=== PATIENT | female | born 1985 | race Hispanic/Latino ===

== ENCOUNTER 2016-10-31 10:39 | Emergency (ER) | payer MEDICAID ==
[~2016-10-31] VITALS: Ht 162.6 cm; Wt 62.6 kg
[~2016-10-31 10:39] MED LIST: ALPR0.25 PO; ALPR0.5T7; BUSP10TA95; CETI10TA17 PO; CIPR500T4 PO; CLON0.1T PO; CYCL10TA9 PO; DICY20TA10 PO; DICY20TA33 PO; DOCU-238 PO; DOCU100C37 PO; HYDR-3812 PO; HYDR-757 PO; METR500T21 PO; NAPR500T3 PO; NF-DICLOTA PO; NORG1TAB30 PO; ONDA8TAB13 PO; ONDA8TAB9 PO; POLY17PO6 PO; PRD20T PO; QUET100T69 PO; TRAM-42 PO
[2016-10-31] MEDS ORDERED: ONDANSETRON 4 MG (ZOFRAN) ORAL DISSOLVE TAB PO ONE (11:30)
[2016-10-31] MEDS ORDERED: ONDA8TAB9 PO (11:33)
--- NOTE | 2016-10-31 11:33 | ED Cough/URI ---
General Chief Complaint: Cough/Cold/Flu Symptoms Stated Complaint: FLU Source: patient Exam Limitations: no limitations History of Present Illness Time seen by provider: 11:30 Initial Comments To ER with 2-3 days of flulike symptoms including chills, nausea and vomiting, rhinorrhea. She also states that this is been going around her workplace and she believes that she may have caught this from one of her coworkers. She has not measured her temperature but believes herself to had fevers. She does not have a cough. She also found out last night that her boyfriend has been sleeping with 3 other women and she would like "blood test for any STDs". Timing/Duration: constant Severity/Quality: moderate Associated Symptoms: fever/chills Allergies and Home Medications Allergies Coded Allergies: Penicillins (Unverified Allergy, Unknown, 04/19/16) sulfamethoxazole (Unverified Allergy, Unknown, 04/19/16) trimethoprim (Unverified Allergy, Unknown, 04/19/16) tramadol (Unverified Adverse Reaction, Mild, rash, 04/19/16) Home Medications Alprazolam 0.5 Mg Tablet, #60 (Reported) Alprazolam 0.25 Mg Tablet, 0.25 MG PO Q8H, #6 Prescribed by: HILARIA CLOUD on 04/18/16 0250 Buspirone HCl 10 Mg Tablet, #60 (Reported) Cefuroxime Axetil 500 Mg Tablet, 500 MG PO BID, #10 Prescribed by: HILDA ROSADO on 10/31/16 1203 Cetirizine HCl 10 Mg Tablet, 10 MG PO DAILY, (Reported) Cyclobenzaprine HCl 10 Mg Tablet, 10 MG PO Q8H PRN for SPASMS, #10 Ref 0 Prescribed by: DANIEL MARTINEZ on 04/19/16 1313 Diclofenac Sod 100 Mg Tab, 100 MG PO DAILY PRN for PAIN, #14 Ref 0 Prescribed by: DANIEL MARTINEZ on 04/19/16 1313 Naproxen 500 Mg Tablet, 500 MG PO BID, #20 Prescribed by: GATO POTTS on 03/11/16 0356 Ondansetron 8 Mg Tab.rapdis, 8 MG PO Q6H PRN for NAUSEA/VOMITING, #10 Ref 0 Prescribed by: DANIEL MARTINEZ on 04/19/16 1333 Ondansetron 8 Mg Tab.rapdis, 8 MG PO Q6H PRN for NAUSEA/VOMITING-1ST LINE, #10 Prescribed by: HILDA ROSADO on 10/31/16 1133 Prednisone 20 Mg Tab, 40 MG PO DAILY, #10 Ref 0 Prescribed by: DANIEL MARTINEZ on 04/19/16 1313 Quetiapine Fumarate 100 Mg Tablet, 100 MG PO HS PRN for SLEEP, (Reported) Tramadol HCl 50 Mg Tablet, 50 MG PO Q8H, #6 Prescribed by: HILARIA CLOUD on 04/18/16 0250 Constitutional: see HPI, chills Respiratory: no symptoms reported Cardiovascular: no symptoms reported Genitourinary: no symptoms reported Musculoskeletal: no symptoms reported Skin: no symptoms reported Psychiatric/Neurological: No Symptoms Reported Hematologic/Lymphatic: No Symptoms Reported Past Brgpago-Vemfyu-Fsqrwq Hx Patient Social History Alcohol Use: Denies Use Recreational Drug Use: No Smoking Status: Current Everyday Smoker Type Used: Cigarettes Recent Foreign Travel: No Contact w/Someone Who Travel: No Recent Hopitalizations: No Immunizations Up To Date Tetanus Booster (TDap): Less than 5yrs PED Vaccines UTD: No Seasonal Allergies Seasonal Allergies: Yes Surgeries HX Surgeries: Yes Surgeries: Gallbladder, Orthopedic Respiratory Hx Respiratory Disorders: No Cardiovascular Hx Cardiac Disorders: No Neurological Hx Neurological Disorders: No Reproductive System Hx Reproductive Disorders: No Female Reproductive Disorders: Denies Genitourinary Hx Genitourinary Disorders: No Gastrointestinal Hx Gastrointestinal Disorders: No Musculoskeletal Hx Musculoskeletal Disorders: No Endocrine Hx Endocrine Disorders: No HEENT HX ENT Disorders: No Cancer Hx Cancer: No Psychosocial Hx Psychiatric Problems: Yes Behavioral Health Disorders: Bipolar Integumentary HX Skin/Integumentary Disorder: No Blood Transfusions Hx Blood Disorders: No Family Medical History Significant Family History: No Pertinent Family Hx Family Medial History: Physical Exam Vital Signs Vital Sign - Last 12Hours 10/31/16 11:23 Temp 98.4 Pulse 86 Resp 20 B/P (MAP) 112/96 Pulse Ox 98 O2 Delivery Room Air Capillary Refill : General Appearance: WD/WN, no apparent distress Eyes: Bilateral Eye EOMI, Bilateral Eye Normal Inspection, Bilateral Eye PERRL HEENT: PERRL/EOMI, normal ENT inspection Neck: non-tender, full range of motion Respiratory: no respiratory distress, no accessory muscle use Cardiovascular: regular rate, rhythm, no murmur Gastrointestinal: normal bowel sounds, non tender, soft Neurologic/Psychiatric: alert, normal mood/affect, oriented x 3 Skin: normal color, warm/dry Progress/Results/Core Measures Results/Orders Lab Results Laboratory Tests Test 10/31/16 11:40 Range/Units White Blood Count 4.7 4.3-11.0 10^3/uL Red Blood Count 4.66 4.35-5.85 10^6/uL Hemoglobin 14.1 11.5-16.0 G/DL Hematocrit 43 35-52 % Mean Corpuscular Volume 92 80-99 FL Mean Corpuscular Hemoglobin 30 25-34 PG Mean Corpuscular Hemoglobin Concent 33 32-36 G/DL Red Cell Distribution Width 13.6 10.0-14.5 % Platelet Count 300 130-400 10^3/uL Mean Platelet Volume 8.9 7.4-10.4 FL Neutrophils (%) (Auto) 60 42-75 % Lymphocytes (%) (Auto) 33 12-44 % Monocytes (%) (Auto) 6 0-12 % Eosinophils (%) (Auto) 0 0-10 % Basophils (%) (Auto) 0 0-10 % Neutrophils # (Auto) 2.8 1.8-7.8 X 10^3 Lymphocytes # (Auto) 1.6 1.0-4.0 X 10^3 Monocytes # (Auto) 0.3 0.0-1.0 X 10^3 Eosinophils # (Auto) 0.0 0.0-0.3 10^3/uL Basophils # (Auto) 0.0 0.0-0.1 10^3/uL Urine Color YELLOW Urine Clarity CLEAR Urine pH 7 5-9 Urine Specific [place] 1.005 L 1.016-1.022 Urine Protein NEGATIVE NEGATIVE Urine Glucose (UA) NEGATIVE NEGATIVE Urine Ketones NEGATIVE NEGATIVE Urine Nitrite NEGATIVE NEGATIVE Urine Bilirubin NEGATIVE NEGATIVE Urine Urobilinogen NORMAL NORMAL MG/DL Urine Leukocyte Esterase 1+ H NEGATIVE Urine RBC (Auto) 5+ H NEGATIVE Urine RBC NONE /HPF Urine WBC 10-25 H /HPF Urine Squamous Epithelial Cells 2-5 /HPF Urine Crystals NONE /LPF Urine Bacteria TRACE /HPF Urine Casts NONE /LPF Urine Mucus NEGATIVE /LPF Urine Culture Indicated YES Sodium Level 141 135-145 MMOL/L Potassium Level 4.3 3.6-5.0 MMOL/L Chloride Level 109 H 98-107 MMOL/L Carbon Dioxide Level 22 21-32 MMOL/L Anion Gap 10 5-14 MMOL/L Blood Urea Nitrogen 9 7-18 MG/DL Creatinine 0.81 0.60-1.30 MG/DL Estimat Glomerular Filtration Rate > 60 BUN/Creatinine Ratio 11 Glucose Level 88 70-105 MG/DL Calcium Level 9.4 8.5-10.1 MG/DL Total Bilirubin 0.2 0.1-1.0 MG/DL Aspartate Amino Transf (AST/SGOT) 19 5-34 U/L Alanine Aminotransferase (ALT/SGPT) 12 0-55 U/L Alkaline Phosphatase 88 40-136 U/L Total Protein 7.3 6.4-8.2 G/DL Albumin 4.5 3.2-4.5 G/DL Micro Results Microbiology 10/31/16 Influenza Types A,B Antigen (ADRIÁN) - Final, Complete My Orders Orders - HILDA ROSADO [employer] Cbc With Automated Diff (10/31/16 11:29) Comprehensive Metabolic Panel (10/31/16 11:29) Ua Culture If Indicated (10/31/16 11:29) Urine Bedside (10/31/16 11:29) Influenza A And B Antigens (10/31/16 11:29) Ondansetron Oral Dissolve Tab (Zofran (10/31/16 11:30) Urine Culture (10/31/16 11:40) Medications Given in ED Current Medications Medications Dose Ordered Sig/Chirag Route Start Time Stop Time Status Last Admin Dose Admin Ondansetron HCl 4 mg ONCE ONCE PO 10/31/16 11:30 10/31/16 11:31 DC 10/31/16 11:36 4 MG Vital Signs/I&O Vital Sign - Last 12Hours 10/31/16 11:23 Temp 98.4 Pulse 86 Resp 20 B/P (MAP) 112/96 Pulse Ox 98 O2 Delivery Room Air Departure Impression Impression: Primary Impression: Viral syndrome Additional Impression: Urinary tract infection Disposition: 01 HOME, SELF-CARE Condition: Stable Departure-Patient Inst. Decision time for Depature: 11:32 Referrals: [facility] (PCP/Family) Primary Care Physician Patient Instructions: VIRAL SYNDROME Add. Discharge Instructions: 1. Follow-up with your regular doctor next week for recheck. He should also discuss STD testing with them as you are right, this is a very good idea. However the emergency room is not the optimal place to have this done. 2. If you do not have a family physician list is been provided for you. All discharge instructions reviewed with patient and/or family. Voiced understanding. Scripts Cefuroxime Axetil (Cefuroxime) 500 Mg Tablet 500 MG PO BID, #10 TAB Prov: HILDA ROSADO APRN 10/31/16 Ondansetron (Zofran Odt) 8 Mg Tab.rapdis 8 MG PO Q6H Y for NAUSEA/VOMITING-1ST LINE, #10 TAB Prov: HILDA ROSADO APRN 10/31/16 Work/School Note: Work Release Form Date Seen in the Emergency Department: Oct 31, 2016 Return to Work: Nov 02, 2016 HILDA ROSADO APRN Oct 31, 2016 11:33
[2016-10-31 11:49] LABS: BASOPHILS % (AUTO) 0 % (0-10); BILIRUBIN,URINE NEGATIVE (NEGATIVE); EOSINOPHILS % (AUTO) 0 % (0-10); KETONES,URINE NEGATIVE (NEGATIVE); LEUKOCYTE ESTERASE ,URINE 1+ (NEGATIVE); LYMPHOCYTES # (AUTO) 1.6 X 10^3 (1.0-4.0); LYMPHOCYTES % (AUTO) 33 % (12-44); MEAN CORPUSCULAR HEMOGLOBIN 30 PG (25-34); MEAN CORPUSCULAR HGB CONC 33 G/DL (32-36); MEAN CORPUSCULAR VOLUME 92 FL (80-99); MEAN PLATELET VOLUME 8.9 FL (7.4-10.4); MONOCYTES # (AUTO) 0.3 X 10^3 (0.0-1.0); MONOCYTES % (AUTO) 6 % (0-12); NEUTROPHILS # (AUTO) 2.8 X 10^3 (1.8-7.8); NEUTROPHILS % (AUTO) 60 % (42-75); NITRITE,URINE NEGATIVE (NEGATIVE); PH,URINE 7 (5-9); PLATELET COUNT 300 10^3/uL (130-400); PROTEIN,URINE NEGATIVE (NEGATIVE); RED BLOOD COUNT 4.66 10^6/uL (4.35-5.85); RED CELL DISTRIBUTION WIDTH 13.6 % (10.0-14.5); UROBILINOGEN,URINE NORMAL (NORMAL); WHITE BLOOD COUNT 4.7 10^3/uL (4.3-11.0)
[2016-10-31] MEDS ORDERED: CEFU500T63 PO (12:03)
[2016-10-31 12:08] LABS: ALANINE AMINOTRANSFERASE 12 U/L (0-55); ALBUMIN 4.5 G/DL (3.2-4.5); ANION GAP 10 MMOL/L (5-14); ASPARTATE AMINO TRANSFERASE 19 U/L (5-34); BILIRUBIN,TOTAL 0.2 MG/DL (0.1-1.0); BLOOD UREA NITROGEN 9 MG/DL (7-18); BUN/CREATININE RATIO 11; CALCIUM 9.4 MG/DL (8.5-10.1); CARBON DIOXIDE 22 MMOL/L (21-32); CHLORIDE 109 MMOL/L (98-107); CREATININE SERUM 0.81 MG/DL (0.60-1.30); GFR ESTIMATED > 60; GLUCOSE 88 MG/DL (70-105); POTASSIUM 4.3 MMOL/L (3.6-5.0); SODIUM 141 MMOL/L (135-145); TOTAL PROTEIN 7.3 G/DL (6.4-8.2)
[2016-10-31 12:58] VITALS: BP 0/0
== END 2016-10-31 12:58 | disposition home or self-care (01) ==
LOC: EDUNIT# 10:39 → ER 10:40
DX: B34.9 Viral infection, unspecified (principal); N39.0 Urinary tract infection, site not specified; F17.210 Nicotine dependence, cigarettes, uncomplicated
CPT/HCPCS: 36415; 80053; 81000; 84703; 85025; 87088; 87804; 99283

== ENCOUNTER → 2016-12-05 | Emergency (ER) | payer MEDICAID ==
[~2016-12-05] MED LIST changes: +CEFU500T63 PO
== END | disposition left against medical advice (07) ==
LOC: EDUNIT# 15:25 → ER 15:27
DX: N93.9 Abnormal uterine and vaginal bleeding, unspecified (principal); Z53.21 Procedure and treatment not carried out due to patient leaving prior to being seen by health care provider

== ENCOUNTER 2016-12-20 15:39 | Emergency (ER) | payer MEDICAID ==
[~2016-12-20] VITALS: Ht 162.6 cm; Wt 61.7 kg
--- NOTE | 2016-12-20 17:40 | ED GU-Female ---
General Chief Complaint: Abdominal/GI Problems Stated Complaint: 6 WKS PREG/DOG BITE/FALL/CRAMPING Nursing Triage Note: ABDOMINAL CRAMPING/SPOTTING AFTER FALLING FROM CROUCHING POSITION. REPORTS 6WEEKS . Nursing Sepsis Screen: No Definite Risk Source: patient Exam Limitations: no limitations History of Present Illness Time seen by provider: 17:40 Allergies and Home Medications Allergies Coded Allergies: Penicillins (Unverified Allergy, Unknown, 04/19/16) sulfamethoxazole (Unverified Allergy, Unknown, 04/19/16) trimethoprim (Unverified Allergy, Unknown, 04/19/16) tramadol (Unverified Adverse Reaction, Mild, rash, 04/19/16) Home Medications Cetirizine HCl 10 Mg Tablet, 10 MG PO DAILY, (Reported) Expected Date of Delivery: Sep 13, 2017 Past Zxapbrq-Djakot-Iqvhka Hx Patient Social History Alcohol Use: Denies Use Recreational Drug Use: No Smoking Status: Current Everyday Smoker Type Used: Cigarettes 2nd Hand Smoke Exposure: Yes Recent Foreign Travel: No Contact w/Someone Who Travel: No Recent Infectious Disease Expo: No Recent Hopitalizations: No Immunizations Up To Date Tetanus Booster (TDap): Less than 5yrs PED Vaccines UTD: No Seasonal Allergies Seasonal Allergies: Yes Surgeries HX Surgeries: Yes Surgeries: Gallbladder, Orthopedic Respiratory Hx Respiratory Disorders: No Cardiovascular Hx Cardiac Disorders: No Neurological Hx Neurological Disorders: No Reproductive System : Yes Hx Reproductive Disorders: No Female Reproductive Disorders: Denies Genitourinary Hx Genitourinary Disorders: No Gastrointestinal Hx Gastrointestinal Disorders: No Musculoskeletal Hx Musculoskeletal Disorders: No Endocrine Hx Endocrine Disorders: No HEENT HX ENT Disorders: No Cancer Hx Cancer: No Psychosocial Hx Psychiatric Problems: Yes Behavioral Health Disorders: Anxiety, Bipolar Integumentary HX Skin/Integumentary Disorder: No Blood Transfusions Hx Blood Disorders: No Family Medical History Significant Family History: No Pertinent Family Hx Family Medial History: Physical Exam Vital Signs Vital Sign - Last 12Hours 12/20/16 16:29 Temp 97.0 Pulse 97 Resp 18 B/P (MAP) 126/91 Pulse Ox 98 O2 Delivery Room Air Capillary Refill : Less Than 3 Seconds Progress/Results/Core Measures Results/Orders My Orders Orders - DANIEL MARTINEZ Ob Transvaginal [id number] (12/20/16 16:28) Vital Signs/I&O Vital Sign - Last 12Hours 12/20/16 16:29 Temp 97.0 Pulse 97 Resp 18 B/P (MAP) 126/91 Pulse Ox 98 O2 Delivery Room Air Blood Pressure Mean: 103 Departure Departure-Patient Inst. Referrals: MAY EDUARDO MD (PCP) Primary Care Physician [facility] (Family) Primary Care Physician DANIEL MARTINEZ Dec 20, 2016 17:40
--- NOTE | 2016-12-20 18:00 | Diagnostic Imaging Report ---
INDICATION: Pelvic cramping. EXAMINATION: OB ultrasound. FINDINGS: There is a single live intrauterine fetus present. [place]-rump length of 4.5 mm is consistent with 6 week 2 day gestation. M-mode shows heartbeat of 95 beats per minute. No evidence of subchronic hemorrhage. No free fluid. No adnexal masses. Left ovary appears normal. Right ovary is not identified though there is considerable bowel gas in the right adnexa. IMPRESSION: 6 week 2 day live intrauterine . Dictated by: Dictated on workstation # [id number]
[2016-12-20] MEDS ORDERED: HYDROcodone/APAP 5 MG/325 MG (LORTAB) TAB PO STA (18:02)
[2016-12-20 18:42] VITALS: BP 126/91
--- OUTSIDE RECORDS SUMMARY | 2017-01-01 12:35 | XMS REPORT | Continuity of Care Document ---
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 in urine sediment by light microscopy 25-50 NRG Crystals detection in urine sediment by light microscopy NONE NRG Casts detection in urine sediment by light microscopy NONE NRG Mucus detection in urine sediment by light microscopy NEGATIVE NRG Complete urinalysis with reflex to culture NO NRG Complete blood count (CBC) with automated white blood cell (WBC) differential - 04/18/16 02:09 Blood leukocytes automated count (number/volume) 8.6 10*3/ uL 4.3-11.0 Blood erythrocytes automated count (number/volume) 4.42 10*6 /uL 4.35-5.85 Venous blood hemoglobin measurement (mass/volume) 13.7 g/dL 11.5-16.0 Blood hematocrit (volume fraction) 40 % 35-52 Automated erythrocyte mean corpuscular volume 91 [foz_us] 80-99 Automated erythrocyte mean corpuscular hemoglobin (mass per erythrocyte) 31 pg 25-34 Automated erythrocyte mean corpuscular hemoglobin concentration measurement ( mass/volume) 34 g/dL 32-36 Automated erythrocyte distribution width ratio 12.5 % 10.0-14.5 Automated blood platelet count (count/volume) 346 10*3/uL 130-400 Automated blood platelet mean volume measurement 9.1 [foz_us ] 7.4-10.4 Automated blood neutrophils/100 leukocytes 59 % 42-75 Automated blood lymphocytes/100 leukocytes 35 % 12-44 Blood monocytes/100 leukocytes 5 % 0-12 Automated blood eosinophils/100 leukocytes 1 % 0-10 Automated blood basophils/100 leukocytes 0 % 0-10 Blood neutrophils automated count (number/volume) 5.1 10*3 1.8-7.8 Blood lymphocytes automated count (number/volume) 3.1 10*3 1.0-4.0 Blood monocytes automated count (number/volume) 0.4 10*3 0.0-1.0 Automated eosinophil count 0.1 10*3/uL 0.0-0.3 Automated blood basophil count (count/volume) 0.0 10*3/uL 0.0-0.1 Comprehensive metabolic panel - 04/18/16 02:09 Serum or plasma sodium measurement (moles/volume) 143 mmol/ L 135-145 Serum or plasma potassium measurement (moles/volume) 3.2 mmol/L 3.6-5.0 Serum or plasma chloride measurement (moles/volume) 113 mmol /L 98-107 Carbon dioxide 15 mmol/L 21-32 Serum or plasma anion gap determination (moles/volume) 15 mmol/L 5-14 Serum or plasma urea nitrogen measurement (mass/volume) 8 mg /dL 7-18 Serum or plasma creatinine measurement (mass/volume) 0.73 mg /dL 0.60-1.30 Serum or plasma urea nitrogen/creatinine mass ratio 11 NRG Serum or plasma creatinine measurement with calculation of estimated glomerular filtration rate > NRG Serum or plasma glucose measurement (mass/volume) 107 mg/dL 70-105 Serum or plasma calcium measurement (mass/volume) 9.0 mg/dL 8.5-10.1 Serum or plasma total bilirubin measurement (mass/volume) 0.3 mg/dL 0.1-1.0 Serum or plasma alkaline phosphatase measurement (enzymatic activity/volume) 78 U/L 40-136 Serum or plasma aspartate aminotransferase measurement (enzymatic activity/ volume) 29 U/L 5-34 Serum or plasma alanine aminotransferase measurement (enzymatic activity/volume ) 19 U/L 0-55 Serum or plasma protein measurement (mass/volume) 7.0 g/dL 6.4-8.2 Serum or plasma albumin measurement (mass/volume) 4.3 g/dL 3.2-4.5 Complete blood count (CBC) with automated white blood cell (WBC) differential - 10/31/16 11:40 Blood leukocytes automated count (number/volume) 4.7 10*3/ uL 4.3-11.0 Blood erythrocytes automated count (number/volume) 4.66 10*6 /uL 4.35-5.85 Venous blood hemoglobin measurement (mass/volume) 14.1 g/dL 11.5-16.0 Blood hematocrit (volume fraction) 43 % 35-52 Automated erythrocyte mean corpuscular volume 92 [foz_us] 80-99 Automated erythrocyte mean corpuscular hemoglobin (mass per erythrocyte) 30 pg 25-34 Automated erythrocyte mean corpuscular hemoglobin concentration measurement ( mass/volume) 33 g/dL 32-36 Automated erythrocyte distribution width ratio 13.6 % 10.0-14.5 Automated blood platelet count (count/volume) 300 10*3/uL 130-400 Automated blood platelet mean volume measurement 8.9 [foz_us ] 7.4-10.4 Automated blood neutrophils/100 leukocytes 60 % 42-75 Automated blood lymphocytes/100 leukocytes 33 % 12-44 Blood monocytes/100 leukocytes 6 % 0-12 Automated blood eosinophils/100 leukocytes 0 % 0-10 Automated blood basophils/100 leukocytes 0 % 0-10 Blood neutrophils automated count (number/volume) 2.8 10*3 1.8-7.8 Blood lymphocytes automated count (number/volume) 1.6 10*3 1.0-4.0 Blood monocytes automated count (number/volume) 0.3 10*3 0.0-1.0 Automated eosinophil count 0.0 10*3/uL 0.0-0.3 Automated blood basophil count (count/volume) 0.0 10*3/uL 0.0-0.1 Complete urinalysis with reflex to culture - 10/31/16 11:40 Urine color determination YELLOW NRG Urine clarity determination CLEAR NRG Urine pH measurement by test strip 7 5- 9 Specific gravity of urine by test strip 1.005 1.016-1.022 Urine protein assay by test strip, semi-quantitative NEGATIVE NEGATIVE Urine glucose detection by automated test strip NEGATIVE NEGATIVE Erythrocytes detection in urine sediment by light microscopy 5+ NEGATIVE Urine ketones detection by automated test strip NEGATIVE NEGATIVE Urine nitrite detection by test strip NEGATIVE NEGATIVE Urine total bilirubin detection by test strip NEGATIVE NEGATIVE Urine urobilinogen measurement by automated test strip (mass/volume) NORMAL NORMAL Urine leukocyte esterase detection by dipstick 1+ NEGATIVE Automated urine sediment erythrocyte count by microscopy (number/high power field) NONE NRG Automated urine sediment leukocyte count by microscopy (number/high power field ) [HPF] NRG Bacteria detection in urine sediment by light microscopy TRACE NRG Squamous epithelial cells detection in urine sediment by light microscopy 2-5 NRG Crystals detection in urine sediment by light microscopy NONE NRG Casts detection in urine sediment by light microscopy NONE NRG Mucus detection in urine sediment by light microscopy NEGATIVE NRG Complete urinalysis with reflex to culture YES NRG Influenza virus A and B antigen detection - 10/31/16 11:40 FLU RESULT NEGATIVE FOR INFLUENZA A AND B ANTIGENS BY IA NR Comprehensive metabolic panel - 10/31/16 11:40 Serum or plasma sodium measurement (moles/volume) 141 mmol/ L 135-145 Serum or plasma potassium measurement (moles/volume) 4.3 mmol/L 3.6-5.0 Serum or plasma chloride measurement (moles/volume) 109 mmol /L 98-107 Carbon dioxide 22 mmol/L 21-32 Serum or plasma anion gap determination (moles/volume) 10 mmol/L 5-14 Serum or plasma urea nitrogen measurement (mass/volume) 9 mg /dL 7-18 Serum or plasma creatinine measurement (mass/volume) 0.81 mg /dL 0.60-1.30 Serum or plasma urea nitrogen/creatinine mass ratio 11 NRG Serum or plasma creatinine measurement with calculation of estimated glomerular filtration rate > NRG Serum or plasma glucose measurement (mass/volume) 88 mg/dL 70-105 Serum or plasma calcium measurement (mass/volume) 9.4 mg/dL 8.5-10.1 Serum or plasma total bilirubin measurement (mass/volume) 0.2 mg/dL 0.1-1.0 Serum or plasma alkaline phosphatase measurement (enzymatic activity/volume) 88 U/L 40-136 Serum or plasma aspartate aminotransferase measurement (enzymatic activity/ volume) 19 U/L 5-34 Serum or plasma alanine aminotransferase measurement (enzymatic activity/volume ) 12 U/L 0-55 Serum or plasma protein measurement (mass/volume) 7.3 g/dL 6.4-8.2 Serum or plasma albumin measurement (mass/volume) 4.5 g/dL 3.2-4.5 Bacterial urine culture - 10/31/16 11:40 URINE CULTURE RESULTS <10,000/ML NRG Serum or plasma choriogonadotropin measurement (units/volume) - 12/20/16 18:04 Serum or plasma choriogonadotropin measurement (units/volume) 6788 m[iU]/mL <5 Encounters ACCT No. Visit Date/Time Discharge Status Pt. Type Provider Facility Loc./Unit Complaint [id number] 03/12/2014 13:03:00 03/12/2014 23: 59:59 [facility] Outpatient CARTER REAL DDS
== END 2016-12-20 18:43 | disposition left against medical advice (07) ==
LOC: EDUNIT# 15:39 → ER 15:41
DX: O99.331 Smoking (tobacco) complicating pregnancy, first trimester (principal); O99.341 Other mental disorders complicating pregnancy, first trimester; F41.9 Anxiety disorder, unspecified; F31.9 Bipolar disorder, unspecified; F17.210 Nicotine dependence, cigarettes, uncomplicated; Z3A.01 Less than 8 weeks gestation of pregnancy
CPT/HCPCS: 36415; 76817; 84702; 99284

== ENCOUNTER 2017-01-20 17:00 | Emergency (ER) | payer MEDICAID ==
[~2017-01-20] VITALS: Ht 162.6 cm; Wt 61.9 kg
[~2017-01-20 17:00] MED LIST changes: +DICL100T3 PO; -NF-DICLOTA PO
[2017-01-20] MEDS ORDERED: NS IV 1000 ML 1,000 ML IV ONE (18:25)
[2017-01-20] MEDS ORDERED: THIAMINE 100 MG/ML 2 ML (VITAMIN B-1) VIAL IV ONE (18:30)
[2017-01-20] MEDS ORDERED: ONDANSETRON 4 MG/2 ML (SDV) Z0FRAN IVP ONE ×3 (18:30→20:00)
--- NOTE | 2017-01-20 18:30 | ED GI ---
General Chief Complaint: Abdominal/GI Problems Stated Complaint: 10 WEEKS /NAUSEA,VOMITTING Nursing Triage Note: PT REPORTS N/V X 3 WEEKS. SHE REPORTS SHE QUIT TAKING HER XANAX AND SEROQUEL COLD TURKEY AT THE SAME TIME SHE BEGAN HAVING SYMPTOMS. Sepsis Screen: No Definite Risk Source of Information: Patient, Spouse Exam Limitations: No Limitations History of Present Illness Time Seen By Provider: 18:20 Initial Comments Patient presents with one month progressively worsening daily nausea and vomiting for the past for 5 days inability to keep fluids down. She is [address] Arciniega and has plans to see them in the clinic tomorrow. He was recently started doxylamine which does not help much and she has not been able to keep down either. She's had no diarrhea. No blood in the vomit. Allergies and Home Medications Allergies Coded Allergies: Penicillins (Unverified Allergy, Unknown, 04/19/16) sulfamethoxazole (Unverified Allergy, Unknown, 04/19/16) trimethoprim (Unverified Allergy, Unknown, 04/19/16) tramadol (Unverified Adverse Reaction, Mild, rash, 04/19/16) Home Medications Cetirizine HCl 10 Mg Tablet, 10 MG PO DAILY, (Reported) Review of Systems Constitutional: No chills, No fever, No malaise EENTM: No Eye Pain, No Mouth Pain Respiratory: Denies Cough, Denies Shortness of Air Cardiovascular: Denies Chest Pain, Denies Edema Gastrointestinal: See HPI, Abdominal Pain, Denies Diarrhea, Nausea, Poor Appetite, Vomiting Genitourinary: Denies Burning, Denies Discharge Musculoskeletal: No back pain, No joint pain Skin: No pruritus, No rash Psychiatric/Neurological: Denies Headache, Denies Numbness Past Ymbbdoo-Lprdrg-Bsriph Hx Patient Social History Alcohol Use: Denies Use Recreational Drug Use: No Smoking Status: Current Everyday Smoker Type Used: Cigarettes 2nd Hand Smoke Exposure: Yes Recent Foreign Travel: No Contact w/Someone Who Travel: No Recent Infectious Disease Expo: No Recent Hopitalizations: No Immunizations Up To Date Tetanus Booster (TDap): Less than 5yrs PED Vaccines UTD: No Seasonal Allergies Seasonal Allergies: Yes Surgeries HX Surgeries: Yes Surgeries: Gallbladder, Orthopedic Respiratory Hx Respiratory Disorders: No Cardiovascular Hx Cardiac Disorders: No Neurological Hx Neurological Disorders: No Reproductive System Hx Reproductive Disorders: No Female Reproductive Disorders: Denies Genitourinary Hx Genitourinary Disorders: No Gastrointestinal Hx Gastrointestinal Disorders: No Musculoskeletal Hx Musculoskeletal Disorders: No Endocrine Hx Endocrine Disorders: No HEENT HX ENT Disorders: No Cancer Hx Cancer: No Psychosocial Hx Psychiatric Problems: Yes Behavioral Health Disorders: Anxiety, Bipolar Integumentary HX Skin/Integumentary Disorder: No Blood Transfusions Hx Blood Disorders: No Family Medical History Significant Family History: No Pertinent Family Hx Family Medial History: Physical Exam Vital Signs VS - Last 72 Hours, by Label 01/20/17 18:15 Temp 98.3 Pulse 76 Resp 16 B/P (MAP) 112/95 Pulse Ox 97 O2 Delivery Room Air Capillary Refill : Less Than 3 Seconds General Appearance: WD/WN, mild distress HEENT: PERRL/EOMI, pharynx normal Neck: non-tender, supple, normal inspection Respiratory: chest non-tender, lungs clear Cardiovascular: normal peripheral pulses, regular rate, rhythm, no edema Peripheral Pulses: 3+ Dorsalis Pedis (R), 3+ Left Dors-Pedis (L), 3+ Radial Pulses (R), 3+ Radial Pulses (L) Gastrointestinal: normal bowel sounds, soft, tenderness (bilateral lower quadrants) Extremities: no pedal edema, no calf tenderness, normal capillary refill Back: normal inspection, no CVA tenderness, no vertebral tenderness Neurologic/Psychiatric: alert, oriented x 3 Skin: normal color, warm/dry Progress/Results/Core Measures Results/Orders Lab Results Laboratory Tests Test 01/20/17 18:08 01/20/17 19:35 Range/Units White Blood Count 8.9 4.3-11.0 10^3/uL Red Blood Count 4.78 4.35-5.85 10^6/uL Hemoglobin 14.6 11.5-16.0 G/DL Hematocrit 42 35-52 % Mean Corpuscular Volume 87 80-99 FL Mean Corpuscular Hemoglobin 31 25-34 PG Mean Corpuscular Hemoglobin Concent 35 32-36 G/DL Red Cell Distribution Width 12.8 10.0-14.5 % Platelet Count 323 130-400 10^3/uL Mean Platelet Volume 9.4 7.4-10.4 FL Neutrophils (%) (Auto) 63 42-75 % Lymphocytes (%) (Auto) 31 12-44 % Monocytes (%) (Auto) 6 0-12 % Eosinophils (%) (Auto) 0 0-10 % Basophils (%) (Auto) 0 0-10 % Neutrophils # (Auto) 5.6 1.8-7.8 X 10^3 Lymphocytes # (Auto) 2.8 1.0-4.0 X 10^3 Monocytes # (Auto) 0.5 0.0-1.0 X 10^3 Eosinophils # (Auto) 0.0 0.0-0.3 10^3/uL Basophils # (Auto) 0.0 0.0-0.1 10^3/uL Sodium Level 138 135-145 MMOL/L Potassium Level 3.0 L 3.6-5.0 MMOL/L Chloride Level 106 98-107 MMOL/L Carbon Dioxide Level 18 L 21-32 MMOL/L Anion Gap 14 5-14 MMOL/L Blood Urea Nitrogen 5 L 7-18 MG/DL Creatinine 0.72 0.60-1.30 MG/DL Estimat Glomerular Filtration Rate > 60 BUN/Creatinine Ratio 7 Glucose Level 83 70-105 MG/DL Calcium Level 11.1 H 8.5-10.1 MG/DL Magnesium Level 2.5 H 1.8-2.4 MG/DL Total Bilirubin 0.6 0.1-1.0 MG/DL Aspartate Amino Transf (AST/SGOT) 21 5-34 U/L Alanine Aminotransferase (ALT/SGPT) 14 0-55 U/L Alkaline Phosphatase 71 40-136 U/L Total Protein 8.4 H 6.4-8.2 GM/DL Albumin 4.8 H 3.2-4.5 GM/DL Urine Color YELLOW Urine Clarity SLIGHTLY CLOUDY Urine pH 6 5-9 Urine Specific [place] 1.020 1.016-1.022 Urine Protein 2+ H NEGATIVE Urine Glucose (UA) NEGATIVE NEGATIVE Urine Ketones 4+ H NEGATIVE Urine Nitrite NEGATIVE NEGATIVE Urine Bilirubin 1+ H NEGATIVE Urine Urobilinogen 1 NORMAL MG/DL Urine Leukocyte Esterase 1+ H NEGATIVE Urine RBC (Auto) NEGATIVE NEGATIVE Urine RBC 2-5 H /HPF Urine WBC 5-10 H /HPF Urine Squamous Epithelial Cells 2-5 /HPF Urine Renal Epithelial Cells NONE /HPF Urine Crystals NONE /LPF Urine Bacteria MODERATE H /HPF Urine Casts NONE /LPF Urine Mucus LARGE H /LPF Urine Culture Indicated YES My Orders Orders - COLEMAN HARDY Cbc With Automated Diff (01/20/17 18:25) Comprehensive Metabolic Panel (01/20/17 18:25) Ua Culture If Indicated (01/20/17 18:25) Saline Lock/Iv-Start (01/20/17 18:25) Ns Iv 1000 Ml (Sodium Chloride 0.9%) (01/20/17 18:25) Ondansetron Injection (Zofran Injectio (01/20/17 18:30) Magnesium (01/20/17 18:30) Thiamine Injection (Vitamin B-1 Injectio (01/20/17 18:30) Ondansetron Injection (Zofran Injectio (01/20/17 19:15) Potassium Cl 10meq/50ml Ivpb (Kcl 10 Meq (01/20/17 19:13) Lactated Ringers (Lr 1000 Ml Iv Solution (01/20/17 19:20) Urine Culture (01/20/17 19:35) Ondansetron Injection (Zofran Injectio (01/20/17 20:00) Ceftriaxone Injection (Rocephin Injectio (01/20/17 20:00) Potassium Cl 10meq/50ml Ivpb (Kcl 10 Meq (01/20/17 20:00) Ns Iv 1000 Ml (Sodium Chloride 0.9%) (01/20/17 21:00) Ns Iv 1000 Ml (Sodium Chloride 0.9%) (01/20/17 20:42) Medications Given in ED Current Medications Medications Dose Ordered Sig/Chirag Route Start Time Stop Time Status Last Admin Dose Admin Ceftriaxone Sodium 1000 mg/ Sodium Chloride 50 ml @ 100 mls/hr ONCE ONCE IV 01/20/17 20:00 01/20/17 20:29 DC 01/20/17 20:18 100 MLS/HR Lactated Ringer's 1,000 ml @ 0 mls/hr Q0M ONCE IV 01/20/17 19:20 01/20/17 19:22 DC 01/20/17 19:34 1,000 MLS/HR Ondansetron HCl 4 mg ONCE ONCE IVP 01/20/17 18:30 01/20/17 18:31 DC 01/20/17 18:31 4 MG Ondansetron HCl 4 mg ONCE ONCE IVP 01/20/17 19:15 01/20/17 19:16 DC 01/20/17 19:08 4 MG Ondansetron HCl 4 mg ONCE ONCE IVP 01/20/17 20:00 01/20/17 20:01 DC 01/20/17 20:14 4 MG Potassium Chloride 50 ml @ 50 mls/hr ONCE ONCE IV 01/20/17 20:00 01/20/17 20:59 DC 01/20/17 20:17 50 MLS/HR Sodium Chloride 1,000 ml @ 0 mls/hr Q0M ONCE IV 01/20/17 18:25 01/20/17 18:27 DC 01/20/17 18:31 0 MLS/HR Thiamine HCl 100 mg ONCE ONCE IV 01/20/17 18:30 01/20/17 18:32 DC 01/20/17 18:38 100 MG Vital Signs/I&O Vital Sign - Last 12Hours 01/20/17 18:15 Temp 98.3 Pulse 76 Resp 16 B/P (MAP) 112/95 Pulse Ox 97 O2 Delivery Room Air Blood Pressure Mean: 101 Progress Note : Time: 21:26 Progress Note Patient reports her allergy to penicillin was directly to penicillin causing GI upset. She says she has taken amoxicillin since then with no problems. This would be okay to use cephalosporins Consults Consults : Consulting Physician: MAY ARCINIEGA MD Consults Notes [address] the [address] Arciniega who recommended she will typically treat him with 12 mg Zofran followed another 12 mg if not improved in 20 minutes. He will keep fluids going until you feel better. He also states that if cannot get the patient's nausea under control, head and put her on labs and he would watch her overnight. Departure Impression Impression: Primary Impression: Nausea and vomiting Qualified Codes: R11.2 - Nausea with vomiting, unspecified Additional Impressions: Dehydration Urinary tract infection Qualified Codes: N30.00 - Acute cystitis without hematuria Disposition: HOME, SELF-CARE Condition: Improved Departure-Patient Inst. Decision time for Depature: 21:22 Referrals: MAY ARCINIEGA MD (PCP/Family) Primary Care Physician Patient Instructions: Nausea and Vomiting of (DC), Urinary Tract Infection, Adult (DC) Add. Discharge Instructions: Your nausea and vomiting from may be due to the or may be from urinary tract infection you have, however I'll send you home with some nausea medicines and I everted getting an antibiotic to cover you tonight and can start the antibiotics tomorrow twice daily with food until completion. Keep your follow-up appointment with your OB doctor. If you develop the inability to keep foods down or fever and chills then you should return to the ER immediately. I suggest you going on gut rest tonight which means nothing to eat or drink and then slowly reintroduce a clear liquid diet after several hours when you feel your up to it and expand your diet to a more normal diet over several meals as you're tolerating these foods. All discharge instructions reviewed with patient and/or family. Voiced understanding. Scripts Ondansetron (Zofran Odt) 4 Mg Tab.rapdis 4 MG PO Q6H Y for NAUSEA/VOMITING-1ST LINE, #14 TAB 0 Refills Prov: COLEMAN HARDY 01/20/17 Cephalexin (Cephalexin) 500 Mg Tablet 500 MG PO BID WITH MEALS for 4 Days, #8 TAB 0 Refills Prov: COLEMAN HARDY 01/20/17 Copy Copies To 1: MAY ARCINIEGA MD, TITUS J Jan 20, 2017 18:30
[2017-01-20 18:52] LABS: BASOPHILS % (AUTO) 0 % (0-10); EOSINOPHILS % (AUTO) 0 % (0-10); LYMPHOCYTES # (AUTO) 2.8 X 10^3 (1.0-4.0); LYMPHOCYTES % (AUTO) 31 % (12-44); MEAN CORPUSCULAR HEMOGLOBIN 31 PG (25-34); MEAN CORPUSCULAR HGB CONC 35 G/DL (32-36); MEAN CORPUSCULAR VOLUME 87 FL (80-99); MEAN PLATELET VOLUME 9.4 FL (7.4-10.4); MONOCYTES # (AUTO) 0.5 X 10^3 (0.0-1.0); MONOCYTES % (AUTO) 6 % (0-12); NEUTROPHILS # (AUTO) 5.6 X 10^3 (1.8-7.8); NEUTROPHILS % (AUTO) 63 % (42-75); PLATELET COUNT 323 10^3/uL (130-400); RED BLOOD COUNT 4.78 10^6/uL (4.35-5.85); RED CELL DISTRIBUTION WIDTH 12.8 % (10.0-14.5); WHITE BLOOD COUNT 8.9 10^3/uL (4.3-11.0)
[2017-01-20 18:57] LABS: ALANINE AMINOTRANSFERASE 14 U/L (0-55); ALBUMIN 4.8 GM/DL (3.2-4.5); ANION GAP 14 MMOL/L (5-14); ASPARTATE AMINO TRANSFERASE 21 U/L (5-34); BILIRUBIN,TOTAL 0.6 MG/DL (0.1-1.0); BLOOD UREA NITROGEN 5 MG/DL (7-18); BUN/CREATININE RATIO 7; CALCIUM 11.1 MG/DL (8.5-10.1); CARBON DIOXIDE 18 MMOL/L (21-32); CHLORIDE 106 MMOL/L (98-107); CREATININE SERUM 0.72 MG/DL (0.60-1.30); GFR ESTIMATED > 60; GLUCOSE 83 MG/DL (70-105); MAGNESIUM 2.5 MG/DL (1.8-2.4); SODIUM 138 MMOL/L (135-145); TOTAL PROTEIN 8.4 GM/DL (6.4-8.2)
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
[2017-01-20] MEDS ORDERED: POTASSIUM CL 10MEQ/50ML IVPB 50 ML IV STA (19:13)
[2017-01-20] MEDS ORDERED: LACTATED RINGERS 1,000 ML IV ONE (19:20)
[2017-01-20 19:40] LABS: KETONES,URINE 4+ (NEGATIVE); LEUKOCYTE ESTERASE ,URINE 1+ (NEGATIVE); NITRITE,URINE NEGATIVE (NEGATIVE); PH,URINE 6 (5-9); PROTEIN,URINE 2+ (NEGATIVE); UROBILINOGEN,URINE 1 MG/DL (NORMAL)
[2017-01-20 19:49] LABS: BILIRUBIN,URINE 1+ (NEGATIVE)
[2017-01-20] MEDS ORDERED: cefTRIAXone INJECTION 1,000 MG in NS (IVPB) 50 ML IV ONE (20:00)
[2017-01-20] MEDS ORDERED: POTASSIUM CL 10MEQ/50ML IVPB 50 ML IV ONE (20:00)
[2017-01-20] MEDS ORDERED: NS IV 1000 ML 1,000 ML ONE (20:42)
[2017-01-20] MEDS ORDERED: NS IV 1000 ML 1,000 ML IV SCH (21:00)
[2017-01-20] MEDS ORDERED: CEPH500T PO (21:26)
[2017-01-20] MEDS ORDERED: ONDA4TAB8 PO (21:26)
[2017-01-20] MEDS ORDERED: RX-ONDANSETRON 4 MG ODT (ZOFRAN) PPK #4 PO STA (21:27)
[2017-01-20 21:54] VITALS: BP 105/66
== END 2017-01-20 21:54 | disposition home or self-care (01) ==
LOC: EDUNIT# 17:00 → ER 17:03
DX: O23.41 Unspecified infection of urinary tract in pregnancy, first trimester (principal); O99.281 Endocrine, nutritional and metabolic diseases complicating pregnancy, first trimester; E86.0 Dehydration; O99.341 Other mental disorders complicating pregnancy, first trimester; F41.9 Anxiety disorder, unspecified; F31.9 Bipolar disorder, unspecified; O99.331 Smoking (tobacco) complicating pregnancy, first trimester; F17.210 Nicotine dependence, cigarettes, uncomplicated; Z3A.10 10 weeks gestation of pregnancy; Z90.49 Acquired absence of other specified parts of digestive tract; Z98.890 Other specified postprocedural states
CPT/HCPCS: 36415; 80053; 81000; 83735; 85025; 87088; 96361; 96365; 96366; 96367; 96375; 96376

== ENCOUNTER 2017-04-06 15:03 | Outpatient (CLI) | payer MEDICAID ==
[~2017-04-06] VITALS: Ht 162.6 cm; Wt 61.9 kg
[~2017-04-06 15:03] MED LIST changes: +CEPH500T PO; -NAPR500T3 PO; +NAPR500T4 PO; +ONDA4TAB8 PO
[2017-04-06 15:34] VITALS: BP 106/74
[2017-04-06] MEDS ORDERED: QUET100T69 PO (15:45)
[2017-04-06] MEDS ORDERED: PREN1TAB86 PO (15:45)
[2017-04-06] MEDS ORDERED: ALPR0.5T7 PO (15:45)
[2017-04-06 15:59] LABS: BILIRUBIN,URINE NEGATIVE (NEGATIVE); KETONES,URINE NEGATIVE (NEGATIVE); LEUKOCYTE ESTERASE ,URINE NEGATIVE (NEGATIVE); NITRITE,URINE NEGATIVE (NEGATIVE); PH,URINE 6.5 (5-9); PROTEIN,URINE NEGATIVE (NEGATIVE); UROBILINOGEN,URINE NORMAL (NORMAL)
[2017-04-06] MEDS ORDERED: FLUC200T PO (16:33)
[2017-04-06 16:53] VITALS: BP 106/74
--- NOTE | 2017-04-07 09:41 | Physician Query-Final Dx ---
JETHRO GUERRERO 04/07/17 0941: Clinic Account Progress/Dx Physician Query: Please give diagnosis Date of Service Apr 06, 2017 at 15:03 MAY EDUARDO MD 04/09/17 1010: Clinic Account Progress/Dx DIAGNOSIS: Diagnosis false labor JETHRO GUERRERO Apr 07, 2017 09:41 MAY EDUARDO MD Apr 09, 2017 10:10
== END 2017-04-06 16:53 | disposition home or self-care (01) ==
LOC: WSo 15:03 → LDRP 15:04 → WSo 16:53
PROVIDERS: ATTEND Obstetrics & Gynecology
DX: O47.02 False labor before 37 completed weeks of gestation, second trimester (principal); Z3A.20 20 weeks gestation of pregnancy
CPT/HCPCS: 81000; 87088; 87210; 99214

== ENCOUNTER 2017-06-11 09:59 | Outpatient (CLI) | payer MEDICAID ==
[~2017-06-11] VITALS: Ht 162.6 cm; Wt 64.9 kg
[~2017-06-11 09:59] MED LIST changes: +ALPR0.5T7 PO; +FLUC200T PO; +PREN1TAB86 PO
[2017-06-11 10:10] VITALS: BP 105/70
--- NOTE | 2017-06-15 13:05 | Physician Query-Final Dx ---
JETHRO GUERRERO 06/15/17 1305: Clinic Account Progress/Dx Physician Query: Please give diagnosis Date of Service Jun 11, 2017 at 09:59 MAY EDUARDO MD 06/15/17 2039: Clinic Account Progress/Dx DIAGNOSIS: Diagnosis false LABOR JETHRO GUERRERO Jun 15, 2017 13:05 MAY EDUARDO MD Jun 15, 2017 20:39
== END 2017-06-11 13:21 ==
LOC: WSo 09:59 → LDRP 10:00 → WSo 13:21
PROVIDERS: ATTEND Obstetrics & Gynecology
DX: O47.03 False labor before 37 completed weeks of gestation, third trimester (principal); Z3A.30 30 weeks gestation of pregnancy
CPT/HCPCS: 87210; 99214

== ENCOUNTER 2017-07-19 17:25 | Outpatient (CLI) | payer MEDICAID ==
[~2017-07-19] VITALS: Ht 162.6 cm; Wt 65.3 kg
[2017-07-19 17:23] VITALS: BP 120/78
[~2017-07-19 17:25] MED LIST changes: +ACHD5005 PO; -HYDR-3812 PO
[2017-07-19] MEDS ORDERED: D5 LR IV SOLUTION 1,000 ML IV SCH (18:00)
[2017-07-19] MEDS ORDERED: BUTORPHANOL INJ 2 MG/ML (STADOL) VIAL ONE (19:34)
[2017-07-19] MEDS: D5 LR IV SOLUTION 1,000 ML IV SCH (19:35)
[2017-07-19] MEDS ORDERED: BUTORPHANOL INJ 2 MG/ML (STADOL) VIAL IV ONE (19:45)
[2017-07-19] MEDS ORDERED: QUEtiapine 100 MG (SEROquel) TAB IMMEDIATE RELEASE PO ONE (20:15)
[2017-07-19 21:00] VITALS: BP 117/76
[2017-07-20] MEDS: D5 LR IV SOLUTION 1,000 ML IV SCH (02:32)
--- NOTE | 2017-07-20 07:59 | History & Physical ---
History and Physical Date Seen by Provider: Jul 20, 2017 Time Seen by Provider: 07:56 this patient is a 31-year-old female admitted at just past 35 weeks gestation with complaint contractions. She was found to be shashi regularly however she demonstrated no cervical change. She was hydrated and her contractions resolved. She did complain of a viral syndrome with nausea and vomiting prior to presenting. She denied bleeding however was complaining of leaking and felt that she may have had rupture membranes. Evaluation for that was negative. Currently patient is without complaint. She indicates that her contractions resolved her vaginal discharge is decreased. She feel baby moving. Allergies are to penicillin sulfamethoxazole tramadol trimethoprim Occasions are per her antepartum record Medical social and surgical histories are per the antepartum record HEENT exam is normal Neck is supple no lymphadenopathy no thyromegaly Abdomen is gravid soft nontender nondistended Extremities show no clubbing cyanosis. No Homans sign. Pelvic exam is deferred at this time. Serial exams by the labor and delivery nurse showed no cervical pack changer the period of evaluation Laboratory Tests Test 07/19/17 18:10 Range/Units Amniotic Fluid Ferning Test NEGATIVE NEGATIVE Vital Signs Date Time Temp Pulse Resp B/P (MAP) Pulse Ox O2 Delivery O2 Flow Rate FiO2 07/20/17 01:00 98.6 07/19/17 21:00 98.2 64 18 117/76 (90) Room Air 07/19/17 17:23 95.3 83 18 120/78 (92) Room Air vital signs are stable. Patient is afebrile. Assessment and plan 35 weeks gestation with likely status post viral syndrome now resolving. labor has resolved. Plan will be for discharge home with follow-up in clinic labor Allergies and Home Medications Allergies Coded Allergies: Penicillins (Unverified Allergy, Unknown, 04/19/16) sulfamethoxazole (Unverified Allergy, Unknown, 04/19/16) trimethoprim (Unverified Allergy, Unknown, 04/19/16) tramadol (Unverified Adverse Reaction, Mild, rash, 04/19/16) Home Medications Cetirizine HCl 10 Mg Tablet, 10 MG PO DAILY, (Reported) Fluconazole 200 Mg Tablet, 200 MG PO UD for 3 Days, #3 Prescribed by: BRIAN SWIFT on 04/06/17 1633 Vit W-Ca,Fe,FA(<1 mg) 1 Each Tablet, 1 EACH PO DAILY, (Reported) Quetiapine Fumarate 100 Mg Tablet, 100 MG PO TID, (Reported) MAY EDUARDO MD Jul 20, 2017 7:59 am
== END 2017-07-20 08:40 | disposition home or self-care (01) ==
LOC: WSo 17:25 → LDRP 17:27 → WSo 07-20 08:40
PROVIDERS: ATTEND Obstetrics & Gynecology
DX: O60.03 Preterm labor without delivery, third trimester (principal); Z3A.35 35 weeks gestation of pregnancy
CPT/HCPCS: 36415; 87210; 89060; 96361; 96374; 99214

== ENCOUNTER 2017-07-24 12:28 | Outpatient (CLI) | payer MEDICAID ==
[~2017-07-24] VITALS: Ht 162.6 cm; Wt 66.2 kg
[2017-07-24 12:22] VITALS: BP 109/67
[2017-07-24] MEDS ORDERED: OXYC-465 PO (13:01)
[2017-07-24] MEDS ORDERED: ALPR0.5T PO (13:02)
--- NOTE | 2017-07-26 09:24 | Physician Query-Final Dx ---
JETHRO GUERRERO 07/26/17 0924: Clinic Account Progress/Dx Physician Query: Please give diagnosis Date of Service Jul 24, 2017 at 12:28 MAY EDUARDO MD 07/27/17 0759: Clinic Account Progress/Dx DIAGNOSIS: Diagnosis false labor JETHRO GUERRERO Jul 26, 2017 09:24 MAY EDUARDO MD Jul 27, 2017 07:59
== END 2017-07-24 14:05 | disposition home or self-care (01) ==
LOC: WSo 12:28 → LDRP 12:29 → WSo 14:05
PROVIDERS: ATTEND Obstetrics & Gynecology
DX: O47.03 False labor before 37 completed weeks of gestation, third trimester (principal); Z3A.36 36 weeks gestation of pregnancy
CPT/HCPCS: 99213

== ENCOUNTER 2017-07-29 15:36 | Inpatient (IN) | payer MEDICAID ==
[~2017-07-29] VITALS: Ht 162.6 cm; Wt 67.7 kg
[~2017-07-29 15:36] MED LIST changes: +ALPR0.5T PO; +OXYC-465 PO
[2017-07-29 16:00] VITALS: BP 115/84
[2017-07-29] MEDS: D5 LR IV SOLUTION 1,000 ML IV SCH (16:41)
[2017-07-29] MEDS ORDERED: CATHETER FLUSH 10 ML SYR IV PRN (16:45)
[2017-07-29] MEDS ORDERED: LIDOCAINE/EPI 0.5%-1:200,000 (XYLOCAINE) 50ML VIAL INJ PRN (16:45)
[2017-07-29 17:00] VITALS: BP 140/92
[2017-07-29 17:05] LABS: BASOPHILS % (AUTO) 0 % (0-10); EOSINOPHILS # (AUTO) 0.1 10^3/uL (0.0-0.3); EOSINOPHILS % (AUTO) 1 % (0-10); HEMATOCRIT 38 % (35-52); HEMOGLOBIN 13.1 G/DL (11.5-16.0); LYMPHOCYTES % (AUTO) 26 % (12-44); MEAN CORPUSCULAR HEMOGLOBIN 31 PG (25-34); MEAN CORPUSCULAR HGB CONC 35 G/DL (32-36); MEAN CORPUSCULAR VOLUME 88 FL (80-99); MEAN PLATELET VOLUME 9.6 FL (7.4-10.4); MONOCYTES # (AUTO) 0.4 X 10^3 (0.0-1.0); MONOCYTES % (AUTO) 5 % (0-12); NEUTROPHILS # (AUTO) 5.5 X 10^3 (1.8-7.8); NEUTROPHILS % (AUTO) 69 % (42-75); PLATELET COUNT 286 10^3/uL (130-400); RED BLOOD COUNT 4.29 10^6/uL (4.35-5.85); RED CELL DISTRIBUTION WIDTH 13.5 % (10.0-14.5)
[2017-07-29 18:00] VITALS: BP 128/76
--- NOTE | 2017-07-29 18:13 | History & Physical ---
History and Physical Date Seen by Provider: Jul 29, 2017 Time Seen by Provider: 18:10 this patient is a 31-year-old A1 female with a due date September 08, 2017 putting her 37-1/7 weeks gestation state. She presented with complaint contractions. She was dilated 4 cm her last exam in clinic a couple days ago she was not quite 3 cm. His is complicated by fairly notable polyhydramnios with last BIA being 250. She has a history of rapid labors. She did have a GBS culture that was negative. A culture was done on June. Allergies are to penicillin and Bactrim and tramadol medications include vitamins, Seroquel and Xanax S past medical history, surgical history, obstetric history, family history, social histories are per the antepartum record HEENT exam is normal Neck is supple no lymphadenopathy no thyromegaly Abdomen is gravid soft nontender nondistended. The fundal height is greatly exceeding the dates. Extremities show clubbing cyanosis. There is no Homans sign. Pelvic exam on admission shows cervix 4 cm. dilated, recheck is pending Laboratory Tests 07/29/17 16:51 Hemoglobin and white blood cell count and platelet count are normal Assessment and plan 37-1/7 weeks gestation with polyhydramnios in labor. If she continues to progress then we will allow for delivery this evening. If she does not then we would augment tomorrow to effect delivery due to the polyhydramnios term at 37 and 1/7 weeks gestation with polyhydramnios in labor Allergies and Home Medications Allergies Coded Allergies: Penicillins (Unverified Allergy, Unknown, 04/19/16) sulfamethoxazole (Unverified Allergy, Unknown, 04/19/16) trimethoprim (Unverified Allergy, Unknown, 04/19/16) tramadol (Unverified Adverse Reaction, Mild, rash, 04/19/16) Home Medications Alprazolam 0.5 Mg Tablet, 0.5 MG PO BID, (Reported) Oxycodone HCl/Acetaminophen 1 Each Tablet, 1 EACH PO Q4H, (Reported) Vit W-Ca,Fe,FA(<1 mg) 1 Each Tablet, 1 EACH PO DAILY, (Reported) Quetiapine Fumarate 100 Mg Tablet, 100 MG PO TID, (Reported) MAY EDUARDO MD Jul 29, 2017 6:13 pm
[2017-07-29] MEDS ORDERED: OXYTOCIN/NORMAL SALINE 500 ML IV SCH (18:15)
[2017-07-29] MEDS ORDERED: MEASLES,MUMPS,RUBELLA 1 EA INJ SC ONE (18:15)
[2017-07-29] MEDS ORDERED: ONDANSETRON 4 MG/2 ML (SDV) Z0FRAN IVP PRN (18:15)
[2017-07-29] MEDS ORDERED: BENZOCAINE/MENTHOL (DERMOPLAST) 56 ML CAN TP PRN (18:15)
[2017-07-29] MEDS ORDERED: TETANUS,DIPTH,PERTUSS P/F (BOOSTRIX) 0.5 ML VIAL IM ONE (18:15)
[2017-07-29] MEDS ORDERED: RT-ALBUINH IH (19:09)
[2017-07-29] MEDS ORDERED: QUET100T PO (19:09)
[2017-07-29 19:57] VITALS: BP 95/55
[2017-07-29] MEDS: ACETAMINOPHEN 500 MG TAB (TYLENOL) PO PRN (20:22)
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
[2017-07-30] VITALS (52 sets, daily range): BP systolic 91–142; BP diastolic 55–92
[2017-07-30] MEDS: D5 LR IV SOLUTION 1,000 ML IV SCH ×3 (01:42→09:05)
[2017-07-30] MEDS: DOCUSATE SODIUM 100 MG (COLACE) CAP PO SCH ×2 (01:49→19:49)
[2017-07-30] MEDS ORDERED: SUFENTA 0.6MCG/ML BUPIVA 0.125 100 ML ONE (06:51)
[2017-07-30] MEDS ORDERED: BUPIVACAINE 0.25% 30 ML (SENSORCAINE) VIAL ONE (07:08)
[2017-07-30] MEDS ORDERED: fentaNYL INJECTION 100 MCG/2 ML AMP ONE (07:08)
[2017-07-30] MEDS ORDERED: LACTATED RINGERS 1,000 ML IV ONE (07:39)
[2017-07-30] MEDS ORDERED: LACTATED RINGERS 1,000 ML IV SCH (07:56)
--- NOTE | 2017-07-30 07:58 | Progress Note-Standard ---
Standard Progress Note Progress Notes/Assess & Plan Date Seen by Provider: Jul 30, 2017 Time Seen by Provider: 07:54 Progress/Assessment & Plan this patient was admitted last evening with complaint contractions. Her is complicated by markedly polyhydramnios. She was shashi and had dilated to 4 cm. With hydration patient's contractions slowed a bit however through the night they began to accelerate. This morning patient requested an epidural which was placed. Her cervix was 5 cm plus with a bulging bag into the vagina. Amniotomy was performed allowing the fluid to leak slowly to avoid a rapid decompression. monitor was showing occasional contractions and a normal heart rate pattern. Vital Signs Date Time Temp Pulse Resp B/P (MAP) Pulse Ox O2 Delivery O2 Flow Rate FiO2 07/30/17 06:35 97.7 83 18 124/83 (97) 99 Room Air 07/30/17 01:42 98.1 75 18 91/55 (67) Room Air 07/29/17 19:57 97.0 78 18 95/55 (68) Room Air 07/29/17 18:00 80 18 128/76 (93) 07/29/17 17:00 93 18 140/92 (108) 07/29/17 16:00 85 18 115/84 (94) I & O 07/30/17 07:00 Intake Total 1000 ml Balance 1000 ml Vital signs are stable patient is afebrile Abdomen is gravid with fundal height well above gestational age abdomen is nontender Extremities show no clubbing cyanosis. There is no Homans sign. There is minimal pretibial pitting edema. Pelvic exam shows cervix between 5 and 6 cm dilated presenting part was vertex at 0+1 station bulging bag assisted down the vaginal wall. This was fenestrated to allow for control release of the copious amniotic fluid. Both patient and baby tolerated the amniotomy monitor and reassuring Laboratory Tests Test 07/29/17 16:51 Range/Units White Blood Count 8.0 4.3-11.0 10^3/uL Red Blood Count 4.29 L 4.35-5.85 10^6/uL Hemoglobin 13.1 11.5-16.0 G/DL Hematocrit 38 35-52 % Mean Corpuscular Volume 88 80-99 FL Mean Corpuscular Hemoglobin 31 25-34 PG Mean Corpuscular Hemoglobin Concent 35 32-36 G/DL Red Cell Distribution Width 13.5 10.0-14.5 % Platelet Count 286 130-400 10^3/uL Mean Platelet Volume 9.6 7.4-10.4 FL Neutrophils (%) (Auto) 69 42-75 % Lymphocytes (%) (Auto) 26 12-44 % Monocytes (%) (Auto) 5 0-12 % Eosinophils (%) (Auto) 1 0-10 % Basophils (%) (Auto) 0 0-10 % Neutrophils # (Auto) 5.5 1.8-7.8 X 10^3 Lymphocytes # (Auto) 2.0 1.0-4.0 X 10^3 Monocytes # (Auto) 0.4 0.0-1.0 X 10^3 Eosinophils # (Auto) 0.1 0.0-0.3 10^3/uL Basophils # (Auto) 0.0 0.0-0.1 10^3/uL Lab work is reassuring Assessment and plan term at 37-2/7 weeks' gestation complicated by severe oligohydramnios. Patient presented in early labor were now augmenting her labor with amniotomy and we'll add Pitocin if necessary to effect adequate labor for delivery MAY EDUARDO MD Jul 30, 2017 7:58 am
[2017-07-30] MEDS ORDERED: diphenhydrAMINE 50 MG/ML INJ (BENADRYL) IV PRN (08:00)
[2017-07-30] MEDS ORDERED: DOCU100C37 PO (08:00)
[2017-07-30] MEDS ORDERED: OXYC-465 PO (08:00)
[2017-07-30] MEDS ORDERED: NALOXONE 0.4 MG/ML 1 ML (NARCAN) VIAL IV PRN ×2 (08:00)
[2017-07-30] MEDS ORDERED: ONDANSETRON 4 MG/2 ML (SDV) Z0FRAN IV PRN (08:00)
[2017-07-30] MEDS ORDERED: METOCLOPRAMIDE INJ 10 MG/2 ML (REGLAN) IV PRN (08:00)
[2017-07-30] MEDS ORDERED: EPIDURAL (SUFENTA 0.6MCG/ML BUPIVA 0.125%) 100 ML BAG EPI PRN (08:00)
[2017-07-30] MEDS ORDERED: IBUP-1780 PO (08:00)
--- NOTE | 2017-07-30 08:01 | Discharge Instructions ---
Discharge Instructions Discharge Medications New, Converted or Re-Newed RX: RX on Chart Patient Instructions Patient Instructions: as directed Return to The Hospital For: as directed Activity & Diet Discharge Diet: No Restrictions Activity as Tolerated: No Orders-Post D/C & Referrals Follow Up Appt: Call to make follow up appt. for patient in 4 weeks. Activity Per routine post vaginal delivery instructions. Please call in RX to patient pharmacy. Diet as tolerated Patient may shower or tub bathe as desired. MAY EDUARDO MD Jul 30, 2017 8:01 am
[2017-07-30] MEDS: ACETAMINOPHEN 500 MG TAB (TYLENOL) PO PRN ×2 (08:10→16:43)
[2017-07-30] MEDS ORDERED: LIDOCAINE/EPI 2% 1:200,00 (XYLOCAINE) 10 ML VIAL ONE (15:17)
[2017-07-30] MEDS ORDERED: KETOROLAC 30 MG/ML VIAL ONE (16:40)
[2017-07-30] MEDS: KETOROLAC 30 MG/ML VIAL IV SCH (16:43)
[2017-07-30] MEDS: oxyCODONE/APAP 10/325MG (PERCOCET 10) TABLET PO PRN ×2 (17:50→19:49)
[2017-07-31] MEDS ORDERED: KETOROLAC 30 MG/ML VIAL ONE ×2 (00:19→06:24)
[2017-07-31 00:25] VITALS: BP 111/69
[2017-07-31] MEDS: KETOROLAC 30 MG/ML VIAL IV SCH ×2 (00:27→06:28)
[2017-07-31 04:45] VITALS: BP 107/67
[2017-07-31] MEDS: DOCUSATE SODIUM 100 MG (COLACE) CAP PO SCH (09:24)
[2017-07-31 09:43] VITALS: BP 122/82
[2017-07-31] MEDS: oxyCODONE/APAP 10/325MG (PERCOCET 10) TABLET PO PRN ×2 (09:45→15:40)
--- NOTE | 2017-07-31 09:52 | Progress Note-Standard ---
Standard Progress Note Progress Notes/Assess & Plan Date Seen by Provider: Jul 31, 2017 Time Seen by Provider: 09:50 Progress/Assessment & Plan this patient was admitted last evening with complaint contractions. Her is complicated by markedly polyhydramnios. She was shashi and had dilated to 4 cm. With hydration patient's contractions slowed a bit however through the night they began to accelerate. This morning patient requested an epidural which was placed. Her cervix was 5 cm plus with a bulging bag into the vagina. Amniotomy was performed allowing the fluid to leak slowly to avoid a rapid decompression. monitor was showing occasional contractions and a normal heart rate pattern. Vital Signs Date Time Temp Pulse Resp B/P (MAP) Pulse Ox O2 Delivery O2 Flow Rate FiO2 07/30/17 06:35 97.7 83 18 124/83 (97) 99 Room Air 07/30/17 01:42 98.1 75 18 91/55 (67) Room Air 07/29/17 19:57 97.0 78 18 95/55 (68) Room Air 07/29/17 18:00 80 18 128/76 (93) 07/29/17 17:00 93 18 140/92 (108) 07/29/17 16:00 85 18 115/84 (94) I & O 07/30/17 07:00 Intake Total 1000 ml Balance 1000 ml Vital signs are stable patient is afebrile Abdomen is gravid with fundal height well above gestational age abdomen is nontender Extremities show no clubbing cyanosis. There is no Homans sign. There is minimal pretibial pitting edema. Pelvic exam shows cervix between 5 and 6 cm dilated presenting part was vertex at 0+1 station bulging bag senior care down the vaginal wall. This was fenestrated to allow for control release of the copious amniotic fluid. Both patient and baby tolerated the amniotomy monitor and reassuring Laboratory Tests Test 07/29/17 16:51 Range/Units White Blood Count 8.0 4.3-11.0 10^3/uL Red Blood Count 4.29 L 4.35-5.85 10^6/uL Hemoglobin 13.1 11.5-16.0 G/DL Hematocrit 38 35-52 % Mean Corpuscular Volume 88 80-99 FL Mean Corpuscular Hemoglobin 31 25-34 PG Mean Corpuscular Hemoglobin Concent 35 32-36 G/DL Red Cell Distribution Width 13.5 10.0-14.5 % Platelet Count 286 130-400 10^3/uL Mean Platelet Volume 9.6 7.4-10.4 FL Neutrophils (%) (Auto) 69 42-75 % Lymphocytes (%) (Auto) 26 12-44 % Monocytes (%) (Auto) 5 0-12 % Eosinophils (%) (Auto) 1 0-10 % Basophils (%) (Auto) 0 0-10 % Neutrophils # (Auto) 5.5 1.8-7.8 X 10^3 Lymphocytes # (Auto) 2.0 1.0-4.0 X 10^3 Monocytes # (Auto) 0.4 0.0-1.0 X 10^3 Eosinophils # (Auto) 0.1 0.0-0.3 10^3/uL Basophils # (Auto) 0.0 0.0-0.1 10^3/uL Lab work is reassuring Assessment and plan term at 37-2/7 weeks' gestation complicated by severe oligohydramnios. Patient presented in early labor were now augmenting her labor with amniotomy and we'll add Pitocin if necessary to effect adequate labor for delivery June 30, 2018. Per nurse's report and the report of this patient's is without complaint. She is ambulating and voiding and tolerating by mouth well, patient currently is in the shower and not available for exam - She has had no complaints per her Vital Signs Date Time Temp Pulse Resp B/P (MAP) Pulse Ox O2 Delivery O2 Flow Rate FiO2 07/31/17 04:45 96.6 83 18 107/67 (80) 98 Room Air 07/31/17 00:25 97.3 79 18 111/69 (83) 96 Room Air 07/30/17 21:10 97.8 80 18 105/68 (80) 97 Room Air 07/30/17 18:54 98.2 90 18 114/75 (88) Room Air 07/30/17 17:45 80 18 113/76 (88) Room Air 07/30/17 17:30 78 18 119/76 (90) Room Air 07/30/17 17:15 82 18 121/80 (94) Room Air 07/30/17 17:02 86 18 116/83 (94) Room Air 07/30/17 17:00 84 18 121/74 (90) Room Air 07/30/17 16:20 85 18 127/78 (94) Room Air 07/30/17 16:05 89 18 140/92 (108) Room Air 07/30/17 15:50 95 18 123/78 (93) Room Air 07/30/17 15:35 91 18 142/80 (100) Room Air 07/30/17 15:30 18 Non Rebreather 10.00 07/30/17 15:15 89 18 126/88 (101) 99 Non Rebreather 10.00 07/30/17 15:00 74 18 111/69 (83) 99 Room Air 07/30/17 14:45 76 18 114/79 (91) 99 Room Air 07/30/17 14:30 71 18 125/66 (85) 98 Room Air 07/30/17 14:15 88 18 127/78 (94) 99 Room Air 07/30/17 14:00 81 18 127/78 (94) 99 Room Air 07/30/17 13:45 80 18 124/82 (96) 98 Room Air 07/30/17 13:30 80 18 128/81 (97) 100 Room Air 07/30/17 13:15 79 18 106/65 (79) 100 Room Air 07/30/17 13:00 88 18 138/90 (106) 100 Room Air 07/30/17 12:45 79 18 137/90 (106) 100 Room Air 07/30/17 12:30 80 18 125/81 (96) 99 Room Air 07/30/17 12:15 85 18 137/89 (105) 99 Room Air 07/30/17 12:00 85 18 137/89 (105) 99 Room Air 07/30/17 11:45 79 18 119/83 (95) 100 Room Air 07/30/17 11:30 77 18 125/79 (94) 99 Room Air 07/30/17 11:25 98.6 07/30/17 11:15 68 18 115/68 (84) 99 Room Air 07/30/17 11:00 76 18 112/75 (87) 99 Room Air 07/30/17 10:45 76 18 112/75 (87) 99 Room Air 07/30/17 10:30 75 18 99 Room Air 07/30/17 10:15 76 18 110/64 (79) 99 Room Air 07/30/17 10:00 73 18 116/73 (87) 100 Room Air I & O 07/31/17 07:00 Intake Total 2500 ml Balance 2500 ml vital signs are stable. Patient is afebrile. Physical exam is deferred Assessment and plan day number 1 status post term spontaneous vaginal delivery doing well per nurse's report. Plan will be for routine convalescence care MAY EDUARDO MD Jul 31, 2017 9:52 am
[2017-07-31] MEDS: IBUPROFEN 800 MG (MOTRIN) TAB PO SCH (12:14)
[2017-07-31 15:40] VITALS: BP 121/83
--- NOTE | 2017-07-31 18:13 | Anesthesia-Regional Post-Op ---
Regional Patient Condition Mental Status: Alert, Oriented x3 Circulation: Same as Pre-Op Headache: Absent Sensation: Full Recovery Motor Block: Absent Post Op Complications Complications None Follow Up Care/Instructions Patient Instructions None needed. Anesthesia/Patient Condition Patient is doing well, no complaints, stable vital signs, no apparent adverse anesthesia problems. No complications reported per nursing. NANCI PACHECO CRNA Jul 31, 2017 18:12
[2017-07-31 22:30] VITALS: BP 105/67
[2017-08-01] MEDS: DOCUSATE SODIUM 100 MG (COLACE) CAP PO SCH ×2 (00:42→07:49)
[2017-08-01] MEDS: IBUPROFEN 800 MG (MOTRIN) TAB PO SCH ×2 (00:42→06:02)
[2017-08-01 05:20] VITALS: BP 99/65
[2017-08-01] MEDS: oxyCODONE/APAP 10/325MG (PERCOCET 10) TABLET PO PRN (07:49)
[2017-08-01 09:30] VITALS: BP 141/99
--- NOTE | 2017-08-05 07:42 | OPERATIVE REPORT ---
DATE OF SERVICE: 07/30/2017 DELIVERY NOTE The patient delivered by term spontaneous vaginal delivery, a viable male with Apgars of 8 and 9 at 1 and 5 minutes respectively, weight is 5 pounds 14 ounces. Cord gases pending. time was 1533 hours. The patient delivered over an intact perineum under epidural analgesia. There was a tight nuchal cord that was slipped over the shoulders and the baby delivered through the loop. The was bulb suctioned on delivery of the head and again on completion of delivery. The umbilical cord when pulseless was doubly clamped, father cut the cord, the baby was passed to mom's abdomen. The placenta delivered somewhat slowly and came out partially incomplete. There was a battledore placenta with a large accessory lobe. On inspection portions of the maternal surface of the placenta were missing from the complex. Manual exploration of the uterine cavity revealed a large fragment of placenta adherent to the posterior uterine wall that was removed as much as was possible manually and then Hunters curette was used for PP curettage of the uterine cavity with removal of a number of additional fragments of placental tissue. The patient did not experience significant bleeding. On manual reexploration of the uterus, there was no definite palpable placental tissue remaining. 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 The cervix, vagina, rectum and perineum were examined and found intact. There were a couple small left labia minora abrasions. These were hemostatic and no repair was required. The sponge and needle counts were correct on completion of delivery and the curettage. Estimated blood loss was around 300 mL. The placenta was sent to pathology for permanent section secondary to the patient's history of polyhydramnios and placenta accreta. Job ID: [id number] DocumentID: [id number] Dictated Date: 07/30/2017 21:54:36 [employer] Date: 07/31/2017 03:34:04 Dictated By: MAY EDUARDO MD MTDD
== END 2017-08-01 11:55 | disposition home or self-care (01) | DRG 767 ==
LOC: LDRP 15:36 → WSo 15:36 → LDRP 16:30 → WSo 17:47 → LDRP 17:47
PROVIDERS: ADMIT Obstetrics & Gynecology; ATTEND Obstetrics & Gynecology
PROC: 10E0XZZ Delivery of Products of Conception, External Approach (ICD-10-PCS; principal; 2017-07-30)
PROC: 10D17Z9 Manual Extraction of Products of Conception, Retained, Via Natural or Artificial Opening (ICD-10-PCS; 2017-07-30)
DX: O40.3XX0 Polyhydramnios, third trimester, not applicable or unspecified (principal); O43.213 Placenta accreta, third trimester; O69.1XX0 Labor and delivery complicated by cord around neck, with compression, not applicable or unspecified; O43.193 Other malformation of placenta, third trimester; O09.893 Supervision of other high risk pregnancies, third trimester; Z3A.37 37 weeks gestation of pregnancy; Z37.0 Single live birth
CPT/HCPCS: 36415; 85025; 86850; 86900; 86901; 99212

== ENCOUNTER 2018-05-03 18:34 | Emergency (ER) | payer MEDICAID ==
[~2018-05-03] VITALS: Ht 162.6 cm; Wt 59.0 kg
[~2018-05-03 18:34] MED LIST changes: +HYDR-4226 PO; -HYDR-757 PO; +IBUP-1780 PO; +NAPR-915 PO; -NAPR500T4 PO; +QUET100T PO; +RT-ALBUINH IH
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
--- NOTE | 2018-05-03 19:25 | ED GU-Female ---
General Stated Complaint: PAIN WITH URINATION Source: patient Exam Limitations: no limitations History of Present Illness Date Seen by Provider: May 03, 2018 Time Seen by Provider: 19:23 Initial Comments Patient is a 32-year-old female who presents to the emergency room with complaints of pain and burning with urination and she thinks she has blood in her urine also. She reports that the pain started yesterday morning. Denies nausea and vomiting. Timing/Duration: yesterday Severity/Quality: burning Associated Symptoms: urinary frequency Allergies and Home Medications Allergies Coded Allergies: Penicillins (Unverified Allergy, Unknown, 04/19/16) sulfamethoxazole (Unverified Allergy, Unknown, 04/19/16) trimethoprim (Unverified Allergy, Unknown, 04/19/16) tramadol (Unverified Adverse Reaction, Mild, rash, 04/19/16) Home Medications Nitrofurantoin Monohyd/M-Cryst 100 Mg Capsule, 1 TAB PO BID Prescribed by: DYLAN GAUTAM on 05/03/182041 Phenazopyridine HCl 100 Mg Tablet, 100 MG PO TID Prescribed by: DYLAN GAUTAM on 05/03/182041 Patient Home Medication List Home Medication List Reviewed: Yes Review of Systems Review of Systems Constitutional: see HPI; No chills, No fever Genitourinary: see HPI, burning, frequency, hematuria, urgency : No All Other Systemes Reviewed Negative Unless Noted: Yes Past Busohft-Sdkrrp-Icvquf Hx Past Med/Social Hx: Reviewed Nursing Past Med/Soc Hx Patient Social History Alcohol Beverage of Choice: Beer Type Used: Cigarettes 2nd Hand Smoke Exposure: Yes Recent Foreign Travel: No Contact w/Someone Who Travel: No Recent Hopitalizations: No Immunizations Up To Date Tetanus Booster (TDap): Less than 5yrs PED Vaccines UTD: No Date of Influenza Vaccine: May 11, 2017 Seasonal Allergies Seasonal Allergies: Yes Past Medical History Gallbladder, Orthopedic Respiratory: Yes Asthma, Chronic Bronchitis Currently Using CPAP: No Currently Using BIPAP: No Cardiac: No Neurological: No Reproductive Disorders: No Female Reproductive Disorders: Ovarian Cyst Sexually Transmitted Disease: No HIV/AIDS: No Genitourinary: No Gastrointestinal: Yes (Gallbladder ruptured) Musculoskeletal: Yes (Fractured left foot 2years ago) Arthritis, Fractures Endocrine: No HEENT: No Loss of Vision: Denies Hearing Impairment: Denies Cancer: No Psychosocial: Yes Anxiety, Bipolar, Depression Integumentary: No Blood Disorders: No Adverse Reaction/Blood Tranf: No Family Medical History Reviewed Nursing Family Hx Alcoholism 19 MOTHER G8 BROTHER G8 BROTHER G8 BROTHER Asthma 19 FATHER G8 BROTHER G8 BROTHER G8 BROTHER Diabetes mellitus Grandparents (Paternal Grandmother) Drug abuse 19 FATHER (Meth, Cocaine, Marijuana, Shrooms, Pills) Hypercholesterolemia 19 FATHER Grandparents (Maternal Grandmother) Hypertension 19 FATHER Grandparents (Paternal Grandmother) Psychosocial problem 19 FATHER (Bipolar, Anxiety) G8 BROTHER (Bipolar, Anxiety, Schizophrenia) G8 BROTHER (Bipolar, Anxiety) G8 BROTHER (Bipolar, Anxiety) Respiratory disorder G8 BROTHER (Asthma) No Pertinent Family Hx Physical Exam Vital Signs Vital Signs - First Documented 05/03/18 19:20 Temp 98.6 Pulse 87 Resp 18 B/P (MAP) 109/69 (82) Pulse Ox 99 O2 Delivery Room Air Capillary Refill : Height, Weight, BMI Height: 5'4.00" Weight: 149lbs. 4.0oz. 67.635371kx; 25.6 BMI Method:Stated General Appearance: WD/WN, no apparent distress Cardiovascular: normal peripheral pulses, regular rate, rhythm, no edema, no gallop, no JVD, no murmur Respiratory: chest non-tender, lungs clear, normal breath sounds, no respiratory distress, no accessory muscle use, respiratory distress Gastrointestinal: normal bowel sounds, non tender, soft, no organomegaly, no pulsatile mass, abnormal bowel sounds Back: normal inspection, CVA tenderness (R), CVA tenderness (L) Neurologic/Psychiatric: alert, normal mood/affect, oriented x 3 Skin: normal color, warm/dry Progress/Results/Core Measures Suspected Sepsis SIRS Temperature: Pulse: Respiratory Rate: Blood Pressure / Mean: Results/Orders Lab Results My Orders Vital Signs/I&O Capillary Refill : Progress Note : Time: 20:40 Progress Note I have seen and evaluated the patient. I have informed her of her laboratory findings. I will be treating for a UTI with macrobid. She agrees with plan of care, plans for discharge, return precautions were given, she voices no questions or concerns. Departure Impression Primary Impression: Urinary tract infection Disposition: 01 HOME, SELF-CARE Condition: Stable/Unchanged Departure-Patient Inst. Decision time for Depature: 20:40 Referrals: MAY EDUARDO MD (PCP/Family) Primary Care Physician Patient Instructions: Urinary Tract Infection, Adult (DC) Add. Discharge Instructions: Take medications as directed. Follow-up with her primary care provider within 1 week for recheck. Drink plenty of clear liquids like water. Return back to the emergency room for any worsening symptoms or concerns as needed. Scripts Phenazopyridine HCl (Pyridium) 100 Mg Tablet 100 MG PO TID for 2 Days, #6 TAB Prov: DYLAN GAUTAM 05/03/18 Nitrofurantoin Monohyd/M-Cryst (Macrobid 100 mg Capsule) 100 Mg Capsule 1 TAB PO BID for 5 Days, #10 CAP Prov: DYLAN GAUTAM 05/03/18 DYLAN GAUTAM May 03, 2018 19:25
[2018-05-03 19:26] LABS: BILIRUBIN,URINE NEGATIVE (NEGATIVE); CLARITY,URINE VERY CLOUDY; COLOR,URINE YELLOW; GLUCOSE, URINE (UA) NEGATIVE (NEGATIVE); KETONES,URINE NEGATIVE (NEGATIVE); LEUKOCYTE ESTERASE ,URINE 3+ (NEGATIVE); NITRITE,URINE NEGATIVE (NEGATIVE); PH,URINE 6.5 (5-9); PROTEIN,URINE 3+ (NEGATIVE); UROBILINOGEN,URINE 1 MG/DL (NORMAL)
[2018-05-03 19:33] LABS: BACTERIA,URINE FEW /HPF; WBC,URINE TNTC /HPF
[2018-05-03 19:57] LABS: BASOPHILS % (AUTO) 0 % (0-10); EOSINOPHILS # (AUTO) 0.2 10^3/uL (0.0-0.3); EOSINOPHILS % (AUTO) 3 % (0-10); HEMATOCRIT 40 % (35-52); HEMOGLOBIN 13.3 G/DL (11.5-16.0); LYMPHOCYTES # (AUTO) 2.6 X 10^3 (1.0-4.0); LYMPHOCYTES % (AUTO) 39 % (12-44); MEAN CORPUSCULAR HEMOGLOBIN 31 PG (25-34); MEAN CORPUSCULAR HGB CONC 33 G/DL (32-36); MEAN CORPUSCULAR VOLUME 93 FL (80-99); MEAN PLATELET VOLUME 9.4 FL (7.4-10.4); MONOCYTES # (AUTO) 0.4 X 10^3 (0.0-1.0); MONOCYTES % (AUTO) 6 % (0-12); NEUTROPHILS # (AUTO) 3.6 X 10^3 (1.8-7.8); NEUTROPHILS % (AUTO) 53 % (42-75); PLATELET COUNT 296 10^3/uL (130-400); RED BLOOD COUNT 4.29 10^6/uL (4.35-5.85); RED CELL DISTRIBUTION WIDTH 13.6 % (10.0-14.5); WHITE BLOOD COUNT 6.8 10^3/uL (4.3-11.0)
[2018-05-03] MEDS ORDERED: cefTRIAXone FOR IV USE 1,000 MG in NS (IVPB) 50 ML IV ONE (20:15)
[2018-05-03 20:33] LABS: ALANINE AMINOTRANSFERASE 14 U/L (0-55); ALBUMIN 4.4 GM/DL (3.2-4.5); ALKALINE PHOSPHATASE 79 U/L (40-136); BILIRUBIN,TOTAL 0.2 MG/DL (0.1-1.0); BUN/CREATININE RATIO 13; CALCIUM 9.3 MG/DL (8.5-10.1); CARBON DIOXIDE 18 MMOL/L (21-32); CHLORIDE 109 MMOL/L (98-107); CREATININE SERUM 0.79 MG/DL (0.60-1.30); GFR ESTIMATED > 60; GLUCOSE 82 MG/DL (70-105); SODIUM 140 MMOL/L (135-145); TOTAL PROTEIN 7.3 GM/DL (6.4-8.2)
[2018-05-03] MEDS ORDERED: NITR-65 PO (20:42)
[2018-05-03] MEDS ORDERED: PHEN-639 PO (20:42)
[2018-05-03] MEDS ORDERED: RX-HYDROCODONE/APAP 5/325 MG #4 TAB PK PO PRN (20:45)
[2018-05-03] MEDS ORDERED: PHENAZOPYRIDINE 100 MG (PYRIDIUM) TABLET PO ONE (20:45)
[2018-05-03 20:55] VITALS: BP 106/72
== END 2018-05-03 20:55 | disposition home or self-care (01) ==
LOC: EDUNIT# 18:34 → ER 18:35
DX: N39.0 Urinary tract infection, site not specified (principal); J44.9 Chronic obstructive pulmonary disease, unspecified; F41.9 Anxiety disorder, unspecified; F31.9 Bipolar disorder, unspecified; Z87.448 Personal history of other diseases of urinary system; Z82.49 Family history of ischemic heart disease and other diseases of the circulatory system; Z88.0 Allergy status to penicillin; Z88.2 Allergy status to sulfonamides; Z88.6 Allergy status to analgesic agent; Z88.8 Allergy status to other drugs, medicaments and biological substances; Z77.22 Contact with and (suspected) exposure to environmental tobacco smoke (acute) (chronic)
CPT/HCPCS: 36415; 80053; 81000; 85025; 87077; 87088; 87186; 96374

== ENCOUNTER 2018-05-17 08:33 | Emergency (ER) | payer MEDICAID ==
[~2018-05-17] VITALS: Ht 162.6 cm; Wt 59.4 kg
[~2018-05-17 08:33] MED LIST changes: +METR-197 PO; -METR500T21 PO; +NITR-65 PO; +PHEN-639 PO
[2018-05-17 09:41] LABS: BILIRUBIN,URINE NEGATIVE (NEGATIVE); CLARITY,URINE CLEAR; COLOR,URINE AMBER; GLUCOSE, URINE (UA) NEGATIVE (NEGATIVE); KETONES,URINE 1+ (NEGATIVE); LEUKOCYTE ESTERASE ,URINE 1+ (NEGATIVE); NITRITE,URINE NEGATIVE (NEGATIVE); PH,URINE 5 (5-9); PROTEIN,URINE 2+ (NEGATIVE); UROBILINOGEN,URINE 1 MG/DL (NORMAL)
[2018-05-17] MEDS ORDERED: NS IV 1000 ML 1,000 ML IV ONE (09:51)
[2018-05-17 09:53] LABS: AMORPHOUS SEDIMENT,UR FEW AMOR URATES /LPF; BACTERIA,URINE FEW /HPF
[2018-05-17 10:06] LABS: BASOPHILS % (AUTO) 0 % (0-10); EOSINOPHILS % (AUTO) 1 % (0-10); HEMATOCRIT 43 % (35-52); HEMOGLOBIN 14.4 G/DL (11.5-16.0); LYMPHOCYTES # (AUTO) 1.7 X 10^3 (1.0-4.0); LYMPHOCYTES % (AUTO) 30 % (12-44); MEAN CORPUSCULAR HEMOGLOBIN 30 PG (25-34); MEAN CORPUSCULAR HGB CONC 34 G/DL (32-36); MEAN CORPUSCULAR VOLUME 90 FL (80-99); MEAN PLATELET VOLUME 9.2 FL (7.4-10.4); MONOCYTES # (AUTO) 0.4 X 10^3 (0.0-1.0); MONOCYTES % (AUTO) 7 % (0-12); NEUTROPHILS # (AUTO) 3.6 X 10^3 (1.8-7.8); NEUTROPHILS % (AUTO) 62 % (42-75); PLATELET COUNT 402 10^3/uL (130-400); RED BLOOD COUNT 4.76 10^6/uL (4.35-5.85); RED CELL DISTRIBUTION WIDTH 13.2 % (10.0-14.5); WHITE BLOOD COUNT 5.8 10^3/uL (4.3-11.0)
--- NOTE | 2018-05-17 10:06 | ED Abdominal Pain ---
General Chief Complaint: Abdominal/GI Problems Stated Complaint: NAUSEA/VOMITING Nursing Triage Note: PT CO OF N/V/D FEVER, STATES HAS BURING UPON URINATION. Sepsis Screen: No Definite Risk Source of Information: Patient Exam Limitations: No Limitations History of Present Illness Date Seen by Provider: May 17, 2018 Time Seen by Provider: 09:33 Initial Comments Here with report of nausea, vomiting and diarrhea over the last 1-2 days. Also has had some fever. States that she had multiple episodes of vomiting overnight and is concerned that she is dehydrated. Also has had some problems with dysuria. Did have urinary tract infection a few weeks ago and got better but now seems to be having problems again. Denies blood in her stool. Just started her menstrual cycle yesterday. Timing/Duration: 1-2 Days Severity/Quality: Moderate, Aching, Cramping Location: Generalized Abdomen, Suprapubic Radiation: No Radiation Activities at Onset: None Modifying Factors: Worsens With Eating Associated Symptoms: No Back Pain, No Chest Pain; Fever/Chills, Nausea/Vomiting ; No Shortness of Air, No Weakness Allergies and Home Medications Allergies Coded Allergies: Penicillins (Unverified Allergy, Unknown, 04/19/16) sulfamethoxazole (Unverified Allergy, Unknown, 04/19/16) trimethoprim (Unverified Allergy, Unknown, 04/19/16) tramadol (Unverified Adverse Reaction, Mild, rash, 04/19/16) Patient Home Medication List Home Medication List Reviewed: Yes Review of Systems Review of Systems Constitutional: see HPI EENTM: No Symptoms Reported Respiratory: No Symptoms Reported Cardiovascular: No Symptoms Reported Gastrointestinal: See HPI Genitourinary: See HPI, Burning, Pain Musculoskeletal: no symptoms reported Skin: No change in color, No rash Psychiatric/Neurological: No Symptoms Reported All Other Systems Reviewed Negative Unless Noted: Yes Past [place]-Ovx[place]f-Qpcrlu Hx Past Med/Social Hx: Reviewed Nursing Past Med/Soc Hx Patient Social History Alcohol Use: Denies Use Number of Drinks Today: AA Alcohol Beverage of Choice: Beer Recreational Drug Use: No Smoking Status: Current Everyday Smoker Type Used: Cigarettes 2nd Hand Smoke Exposure: Yes Recent Foreign Travel: No Contact w/Someone Who Travel: No Recent Infectious Disease Expo: No Recent Hopitalizations: No Physical Abuse: No Sexual Abuse: No Immunizations Up To Date Tetanus Booster (TDap): Unknown PED Vaccines UTD: No Date of Influenza Vaccine: May 11, 2017 Seasonal Allergies Seasonal Allergies: Yes Past Medical History Surgeries: Yes ([place] Teeth, Left Knee scope, Ovarian Cyst) Gallbladder, Orthopedic Respiratory: Yes Asthma, Chronic Bronchitis Currently Using CPAP: No Currently Using BIPAP: No Cardiac: No Neurological: No Last Menstrual Period: May 16, 2018 Reproductive Disorders: No Female Reproductive Disorders: Ovarian Cyst 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 Sexually Transmitted Disease: No HIV/AIDS: No Genitourinary: No Gastrointestinal: Yes (Gallbladder ruptured) Musculoskeletal: Yes Arthritis, Fractures Endocrine: No HEENT: No Loss of Vision: Denies Hearing Impairment: Denies Cancer: No Psychosocial: Yes Anxiety, Bipolar, Depression Integumentary: No Blood Disorders: No Adverse Reaction/Blood Tranf: No Family Medical History Reviewed Nursing Family Hx Alcoholism 19 MOTHER G8 BROTHER G8 BROTHER G8 BROTHER Asthma 19 FATHER G8 BROTHER G8 BROTHER G8 BROTHER Diabetes mellitus Grandparents (Paternal Grandmother) Drug abuse 19 FATHER (Meth, Cocaine, Marijuana, Shrooms, Pills) Hypercholesterolemia 19 FATHER Grandparents (Maternal Grandmother) Hypertension 19 FATHER Grandparents (Paternal Grandmother) Psychosocial problem 19 FATHER (Bipolar, Anxiety) G8 BROTHER (Bipolar, Anxiety, Schizophrenia) G8 BROTHER (Bipolar, Anxiety) G8 BROTHER (Bipolar, Anxiety) Respiratory disorder G8 BROTHER (Asthma) No Pertinent Family Hx Physical Exam Vital Signs Vital Signs - First Documented 05/17/18 08:35 Temp 96.8 Pulse 103 Resp 18 B/P (MAP) 100/78 (85) Pulse Ox 98 Capillary Refill : Less Than 3 Seconds Height/Weight/BMI Height: 5'4.00" Weight: 131lbs. 0oz. [id number]; 25.6 BMI Method:Stated General Appearance: WD/WN, no apparent distress Neck: full range of motion, supple Respiratory: lungs clear, normal breath sounds Cardiovascular: regular rate, rhythm, no murmur Peripheral Pulses: 2+ Dorsalis Pedis (R), 2+ Left Dors-Pedis (L), 2+ Radial Pulses (R), 2+ Radial Pulses (L) Gastrointestinal: soft, tenderness (mild suprapubic tenderness) Extremities: non-tender, normal inspection Back: normal inspection, no CVA tenderness, no vertebral tenderness Neurologic/Psychiatric: alert, oriented x 3 Skin: normal color, warm/dry Progress/Results/Core Measures Results/Orders Lab Results Laboratory Tests Test 05/17/18 08:50 05/17/18 08:55 Range/Units Urine Color RACH H Urine Clarity CLEAR Urine pH 5 5-9 Urine Specific [place] 1.020 1.016-1.022 Urine Protein 2+ H NEGATIVE Urine Glucose (UA) NEGATIVE NEGATIVE Urine Ketones 1+ H NEGATIVE Urine Nitrite NEGATIVE NEGATIVE Urine Bilirubin NEGATIVE NEGATIVE Urine Urobilinogen 1 NORMAL MG/DL Urine Leukocyte Esterase 1+ H NEGATIVE Urine RBC (Auto) 5+ H NEGATIVE Urine RBC 5-10 H /HPF Urine WBC 5-10 H /HPF Urine Squamous Epithelial Cells 2-5 /HPF Urine Crystals PRESENT H /LPF Urine Amorphous Sediment FEW ALON URATES H /LPF Urine Bacteria FEW H /HPF Urine Casts NONE /LPF Urine Mucus MODERATE H /LPF Urine Culture Indicated YES White Blood Count 5.8 4.3-11.0 10^3/uL Red Blood Count 4.76 4.35-5.85 10^6/uL Hemoglobin 14.4 11.5-16.0 G/DL Hematocrit 43 35-52 % Mean Corpuscular Volume 90 80-99 FL Mean Corpuscular Hemoglobin 30 25-34 PG Mean Corpuscular Hemoglobin Concent 34 32-36 G/DL Red Cell Distribution Width 13.2 10.0-14.5 % Platelet Count 402 H 130-400 10^3/uL Mean Platelet Volume 9.2 7.4-10.4 FL Neutrophils (%) (Auto) 62 42-75 % Lymphocytes (%) (Auto) 30 12-44 % Monocytes (%) (Auto) 7 0-12 % Eosinophils (%) (Auto) 1 0-10 % Basophils (%) (Auto) 0 0-10 % Neutrophils # (Auto) 3.6 1.8-7.8 X 10^3 Lymphocytes # (Auto) 1.7 1.0-4.0 X 10^3 Monocytes # (Auto) 0.4 0.0-1.0 X 10^3 Eosinophils # (Auto) 0.0 0.0-0.3 10^3/uL Basophils # (Auto) 0.0 0.0-0.1 10^3/uL Sodium Level 137 135-145 MMOL/L Potassium Level 3.9 3.6-5.0 MMOL/L Chloride Level 106 98-107 MMOL/L Carbon Dioxide Level 19 L 21-32 MMOL/L Anion Gap 12 5-14 MMOL/L Blood Urea Nitrogen 11 7-18 MG/DL Creatinine 0.91 0.60-1.30 MG/DL Estimat Glomerular Filtration Rate > 60 BUN/Creatinine Ratio 12 Glucose Level 110 H 70-105 MG/DL Calcium Level 10.0 8.5-10.1 MG/DL Corrected Calcium 8.5-10.1 MG/DL Total Bilirubin 0.8 0.1-1.0 MG/DL Aspartate Amino Transf (AST/SGOT) 19 5-34 U/L Alanine Aminotransferase (ALT/SGPT) 18 0-55 U/L Alkaline Phosphatase 61 40-136 U/L Total Protein 8.3 H 6.4-8.2 GM/DL Albumin 5.0 H 3.2-4.5 GM/DL My Orders Orders - IVORY GARVIN MD Cbc With Automated Diff (05/17/18 09:35) Comprehensive Metabolic Panel (05/17/18 09:35) Ua Culture If Indicated (05/17/18 09:35) Saline Lock/Iv-Start (05/17/18 09:51) Ns Iv 1000 Ml (Sodium Chloride 0.9%) (05/17/18 09:51) Urine Culture (05/17/18 08:50) Medications Given in ED Current Medications Medications Dose Ordered Sig/Chirag Route Start Time Stop Time Status Last Admin Dose Admin Sodium Chloride 1,000 ml @ 0 mls/hr Q0M ONCE IV 05/17/18 09:51 05/17/18 09:52 DC 05/17/18 10:16 1,000 MLS/HR Vital Signs/I&O 05/17/18 08:35 Temp 96.8 Pulse 103 Resp 18 B/P (MAP) 100/78 (85) Pulse Ox 98 Blood Pressure Mean: 85 Progress Progress Note : Progress Note Seen and evaluated. IV, labs, UA, normal saline 1 L bolus ordered. Monitor patient. 1048: Overall doing a little better. Labs reviewed. Question urinary tract infection again. We will treat with longer term nitrofurantoin given her previous culture of Escherichia coli with appropriate sensitivity. This was discussed with the patient who agrees. She tolerated this medicine previously well. Discharged home with return precautions. Patient verbalize understanding instructions and agreement with plan. Departure Impression Primary Impression: Urinary tract infection Qualified Codes: N30.00 - Acute cystitis without hematuria Additional Impression: Nausea and vomiting Qualified Codes: R11.2 - Nausea with vomiting, unspecified Disposition: HOME, SELF-CARE Condition: Improved Departure-Patient Inst. Decision time for Depature: 10:49 Referrals: NO,LOCAL PHYSICIAN (PCP/Family) Primary Care Physician Patient Instructions: Acute Abdomen (Belly Pain), Adult (DC), Nausea and Vomiting, Adult (DC), Urinary Tract Infection, Adult (DC) Add. Discharge Instructions: All discharge instructions reviewed with patient and/or family. Voiced understanding. Take medications as directed. Follow-up with your Dr. in a few days for recheck. Drink plenty of fluids. Clear liquid diet for 24 hours and then advance as tolerated. Return for worsening, fever, vomiting, weakness, breathing problems or other concerns as needed. Scripts Ondansetron (Ondansetron Odt) 4 Mg Tab.rapdis 4 MG PO Q6H PRN for NAUSEA/VOMITING, #8 TAB 0 Refills Prov: IVORY GARVIN MD 05/17/18 Nitrofurantoin Macrocrystal (Nitrofurantoin) 100 Mg Capsule 100 MG PO BID, #14 CAP 0 Refills Prov: IVORY GARVIN MD 05/17/18 IVORY GARVIN MD May 17, 2018 10:06
[2018-05-17 10:17] LABS: ALANINE AMINOTRANSFERASE 18 U/L (0-55); ALKALINE PHOSPHATASE 61 U/L (40-136); BILIRUBIN,TOTAL 0.8 MG/DL (0.1-1.0); BUN/CREATININE RATIO 12; CARBON DIOXIDE 19 MMOL/L (21-32); CHLORIDE 106 MMOL/L (98-107); CREATININE SERUM 0.91 MG/DL (0.60-1.30); GFR ESTIMATED > 60; GLUCOSE 110 MG/DL (70-105); POTASSIUM 3.9 MMOL/L (3.6-5.0); SODIUM 137 MMOL/L (135-145); TOTAL PROTEIN 8.3 GM/DL (6.4-8.2)
[2018-05-17] MEDS ORDERED: ONDA4TAB11 PO (10:51)
[2018-05-17] MEDS ORDERED: NITR100C PO (10:51)
[2018-05-17 11:04] VITALS: BP 104/72
== END 2018-05-17 11:03 | disposition home or self-care (01) ==
LOC: EDUNIT# 08:33 → ER 08:34
DX: N39.0 Urinary tract infection, site not specified (principal); J44.9 Chronic obstructive pulmonary disease, unspecified; F41.9 Anxiety disorder, unspecified; F31.9 Bipolar disorder, unspecified; F17.210 Nicotine dependence, cigarettes, uncomplicated; Z82.49 Family history of ischemic heart disease and other diseases of the circulatory system; Z88.0 Allergy status to penicillin; Z88.2 Allergy status to sulfonamides; Z98.51 Tubal ligation status; Z87.448 Personal history of other diseases of urinary system; Z88.6 Allergy status to analgesic agent; Z88.8 Allergy status to other drugs, medicaments and biological substances
CPT/HCPCS: 36415; 80053; 81000; 85025; 87088; 96360

== ENCOUNTER 2018-05-30 15:10 | Emergency (ER) | payer MEDICAID ==
[~2018-05-30 15:10] MED LIST changes: +NITR100C PO; +ONDA4TAB11 PO
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
== END 2018-05-30 16:10 | disposition left against medical advice (07) ==
LOC: EDUNIT# 15:10 → ER 15:11
DX: S02.5XXA Fracture of tooth (traumatic), initial encounter for closed fracture (principal); X58.XXXA Exposure to other specified factors, initial encounter

== ENCOUNTER 2019-06-29 12:30 | Emergency (ER) | payer MEDICAID ==
[~2019-06-29] VITALS: Ht 162 cm; Wt 63.7 kg
[~2019-06-29 12:30] MED LIST changes: -DICL100T3 PO; +DICL100T83 PO; +METR-145 PO; -METR-197 PO
[2019-06-29 13:38] LABS: BASOPHILS % (AUTO) 0 % (0-10); EOSINOPHILS # (AUTO) 0.3 10^3/uL (0.0-0.3); EOSINOPHILS % (AUTO) 3 % (0-10); HEMATOCRIT 37 % (35-52); HEMOGLOBIN 11.9 G/DL (11.5-16.0); LYMPHOCYTES # (AUTO) 0.9 X 10^3 (1.0-4.0); LYMPHOCYTES % (AUTO) 13 % (12-44); MEAN CORPUSCULAR HEMOGLOBIN 30 PG (25-34); MEAN CORPUSCULAR HGB CONC 32 G/DL (32-36); MEAN CORPUSCULAR VOLUME 94 FL (80-99); MEAN PLATELET VOLUME 9.2 FL (7.4-10.4); MONOCYTES # (AUTO) 0.3 X 10^3 (0.0-1.0); MONOCYTES % (AUTO) 3 % (0-12); NEUTROPHILS # (AUTO) 5.8 X 10^3 (1.8-7.8); NEUTROPHILS % (AUTO) 81 % (42-75); PLATELET COUNT 252 10^3/uL (130-400); RED CELL DISTRIBUTION WIDTH 13.4 % (10.0-14.5); WHITE BLOOD COUNT 7.3 10^3/uL (4.3-11.0)
--- NOTE | 2019-06-29 13:41 | ED General ---
General Chief Complaint: General Problems/Pain Stated Complaint: SHOULDER PAIN;SWELLING Nursing Triage Note: AMBULATED TO TRIAGE SLOWLY. STATES STARTING LAST NIGHT SHE HAS HAD TROUBLE WITH BILAT ARMS BEING PAINFUL, NOT ABLE TO LIFT THEM, AND SWELLING IN HANDS AND FEET. STATES SHE TOOK ALEVE THIS AM. Nursing Sepsis Screen: No Definite Risk Source of Information: Patient Exam Limitations: No Limitations History of Present Illness Date Seen by Provider: Jun 29, 2019 Time Seen by Provider: 13:39 Initial Comments To ER with reports of swelling in her hands, specifically her fingers, and in her ankles. She has pain and is unable to grasp items because of the swelling in her fingers, she states they're painful. No fevers or chills, she does have a history of this, she has historically attributed this to her Seroquel use. No injuries. Weakness and achiness in the proximal upper arms Timing/Duration: 1-2 Days Severity: Moderate Allergies and Home Medications Allergies Coded Allergies: Penicillins (Unverified Allergy, Unknown, 04/19/16) sulfamethoxazole (Unverified Allergy, Unknown, 04/19/16) trimethoprim (Unverified Allergy, Unknown, 04/19/16) tramadol (Unverified Adverse Reaction, Mild, rash, 04/19/16) Home Medications Nitrofurantoin Macrocrystal 100 Mg Capsule, 100 MG PO BID Prescribed by: IVORY GARVIN on 05/17/18 1051 Ondansetron 4 Mg Tab.rapdis, 4 MG PO Q6H PRN for NAUSEA/VOMITING Prescribed by: IVORY GARVIN on 05/17/18 1051 Patient Home Medication List Home Medication List Reviewed: Yes Review of Systems Review of Systems Constitutional: see HPI EENTM: see HPI Respiratory: no symptoms reported Cardiovascular: no symptoms reported Musculoskeletal: no symptoms reported Skin: no symptoms reported Psychiatric/Neurological: No Symptoms Reported Hematologic/Lymphatic: No Symptoms Reported Past Wsxrdwu-Tcvapq-Uzowgc Hx Patient Social History Alcohol Use: Denies Use Alcohol Beverage of Choice: Beer Recreational Drug Use: No Smoking Status: Current Everyday Smoker Type Used: Cigarettes 2nd Hand Smoke Exposure: Yes Recent Foreign Travel: No Contact w/Someone Who Travel: No Recent Infectious Disease Expo: No Recent Hopitalizations: No Immunizations Up To Date Tetanus Booster (TDap): Unknown PED Vaccines UTD: No Date of Influenza Vaccine: May 11, 2017 Seasonal Allergies Seasonal Allergies: Yes Past Medical History Surgeries: Yes ([place] Teeth, Left Knee scope, Ovarian Cyst) Gallbladder, Orthopedic Respiratory: Yes Asthma, Chronic Bronchitis Currently Using CPAP: No Currently Using BIPAP: No Cardiac: No Neurological: No Reproductive Disorders: No 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 Sexually Transmitted Disease: No HIV/AIDS: No Genitourinary: No Gastrointestinal: Yes (Gallbladder ruptured) Musculoskeletal: Yes Arthritis, Fractures Endocrine: No HEENT: No Loss of Vision: Denies Hearing Impairment: Denies Cancer: No Psychosocial: Yes Anxiety, Bipolar, Depression Integumentary: No Blood Disorders: No Adverse Reaction/Blood Tranf: No Family Medical History Alcoholism 19 MOTHER G8 BROTHER G8 BROTHER G8 BROTHER Asthma 19 FATHER G8 BROTHER G8 BROTHER G8 BROTHER Diabetes mellitus Grandparents (Paternal Grandmother) Drug abuse 19 FATHER (Meth, Cocaine, Marijuana, Shrooms, Pills) Hypercholesterolemia 19 FATHER Grandparents (Maternal Grandmother) Hypertension 19 FATHER Grandparents (Paternal Grandmother) Psychosocial problem 19 FATHER (Bipolar, Anxiety) G8 BROTHER (Bipolar, Anxiety, Schizophrenia) G8 BROTHER (Bipolar, Anxiety) G8 BROTHER (Bipolar, Anxiety) Respiratory disorder G8 BROTHER (Asthma) No Pertinent Family Hx Physical Exam Vital Signs Vital Signs - First Documented 06/29/19 12:44 Temp 36.8 Pulse 87 Resp 16 B/P (MAP) 98/64 (75) Pulse Ox 99 O2 Delivery Room Air Capillary Refill : Less Than 3 Seconds Height, Weight, BMI Height: 5'4.00" Weight: 131lbs. 0oz. 59.319989gv; 24.00 BMI Method:Stated General Appearance: No Apparent Distress, WD/WN Eyes: Bilateral Eye Normal Inspection, Bilateral Eye PERRL, Bilateral Eye EOMI HEENT: PERRL/EOMI, TMs Normal Neck: Full Range of Motion, Normal Inspection Respiratory: No Accessory Muscle Use, No Respiratory Distress Cardiovascular: Regular Rate, Rhythm, Normal Peripheral Pulses Gastrointestinal: Normal Bowel Sounds, Non Tender, Soft Extremity: Normal Capillary Refill, Normal Inspection Neurologic/Psychiatric: Alert, Oriented x3 Skin: Normal Color, Warm/Dry Progress/Results/Core Measures Suspected Sepsis Recent Fever Within 48 Hours: No Infection Criteria Present: None New/Unexplained Altered Menta: No Sepsis Screen: No Definite Risk SIRS Temperature: Pulse: 87 Respiratory Rate: 16 Laboratory Tests 06/29/19 13:30: White Blood Count 7.3 Blood Pressure 98 /64 Mean: 75 Laboratory Tests 06/29/19 13:30: Creatinine 0.83, Platelet Count 252, Total Bilirubin 0.3 Results/Orders Lab Results Laboratory Tests Test 06/29/19 13:30 06/29/19 14:12 Range/Units White Blood Count 7.3 4.3-11.0 10^3/uL Red Blood Count 3.91 L 4.35-5.85 10^6/uL Hemoglobin 11.9 11.5-16.0 G/DL Hematocrit 37 35-52 % Mean Corpuscular Volume 94 80-99 FL Mean Corpuscular Hemoglobin 30 25-34 PG Mean Corpuscular Hemoglobin Concent 32 32-36 G/DL Red Cell Distribution Width 13.4 10.0-14.5 % Platelet Count 252 130-400 10^3/uL Mean Platelet Volume 9.2 7.4-10.4 FL Neutrophils (%) (Auto) 81 H 42-75 % Lymphocytes (%) (Auto) 13 12-44 % Monocytes (%) (Auto) 3 0-12 % Eosinophils (%) (Auto) 3 0-10 % Basophils (%) (Auto) 0 0-10 % Neutrophils # (Auto) 5.8 1.8-7.8 X 10^3 Lymphocytes # (Auto) 0.9 L 1.0-4.0 X 10^3 Monocytes # (Auto) 0.3 0.0-1.0 X 10^3 Eosinophils # (Auto) 0.3 0.0-0.3 10^3/uL Basophils # (Auto) 0.0 0.0-0.1 10^3/uL Erythrocyte Sedimentation Rate 4 0-20 MM/HR Sodium Level 142 135-145 MMOL/L Potassium Level 3.5 L 3.6-5.0 MMOL/L Chloride Level 109 H 98-107 MMOL/L Carbon Dioxide Level 24 21-32 MMOL/L Anion Gap 9 5-14 MMOL/L Blood Urea Nitrogen 11 7-18 MG/DL Creatinine 0.83 0.60-1.30 MG/DL Estimat Glomerular Filtration Rate > 60 BUN/Creatinine Ratio 13 Glucose Level 91 70-105 MG/DL Calcium Level 8.5 8.5-10.1 MG/DL Corrected Calcium 8.7 8.5-10.1 MG/DL Total Bilirubin 0.3 0.1-1.0 MG/DL Aspartate Amino Transf (AST/SGOT) 19 5-34 U/L Alanine Aminotransferase (ALT/SGPT) 16 0-55 U/L Alkaline Phosphatase 53 40-136 U/L Total Creatine Kinase 48 29-168 U/L C-Reactive Protein High Sensitivity 3.09 H 0.00-0.50 MG/DL Total Protein 6.0 L 6.4-8.2 GM/DL Albumin 3.8 3.2-4.5 GM/DL Thyroid Stimulating Hormone (TSH) 1.45 0.35-4.94 UIU/ML Free Thyroxine 0.72 0.70-1.48 NG/DL Urine Color YELLOW Urine Clarity CLEAR Urine pH 8.0 5-9 Urine Specific [place] 1.010 L 1.016-1.022 Urine Protein NEGATIVE NEGATIVE Urine Glucose (UA) NEGATIVE NEGATIVE Urine Ketones NEGATIVE NEGATIVE Urine Nitrite NEGATIVE NEGATIVE Urine Bilirubin NEGATIVE NEGATIVE Urine Urobilinogen 0.2 < = 1.0 MG/DL Urine Leukocyte Esterase NEGATIVE NEGATIVE Urine RBC (Auto) NEGATIVE NEGATIVE Urine RBC NONE /HPF Urine WBC NONE /HPF Urine Squamous Epithelial Cells 10-25 H /HPF Urine Crystals NONE /LPF Urine Bacteria MODERATE H /HPF Urine Casts NONE /LPF Urine Mucus NEGATIVE /LPF Urine Culture Indicated NO Urine Opiates Screen NEGATIVE NEGATIVE Urine Oxycodone Screen NEGATIVE NEGATIVE Urine Methadone Screen NEGATIVE NEGATIVE Urine Propoxyphene Screen NEGATIVE NEGATIVE Urine Barbiturates Screen NEGATIVE NEGATIVE Ur Tricyclic Antidepressants Screen POSITIVE H NEGATIVE Urine Phencyclidine Screen NEGATIVE NEGATIVE Urine Amphetamines Screen POSITIVE H NEGATIVE Urine Methamphetamines Screen POSITIVE H NEGATIVE Urine Benzodiazepines Screen NEGATIVE NEGATIVE Urine Cocaine Screen NEGATIVE NEGATIVE Urine Cannabinoids Screen POSITIVE H NEGATIVE My Orders Orders - HILDA ROSADO APRN Cbc With Automated Diff (06/29/19 13:23) Erythrocyte Sedimentation Rate (06/29/19 13:23) Hs C Reactive Protein (06/29/19 13:23) Ua Culture If Indicated (06/29/19 13:23) Drug Screen Stat (Urine) (06/29/19 13:23) Comprehensive Metabolic Panel (06/29/19 13:23) Urine Bedside (06/29/19 13:23) Thyroid Stimulating Hormone (06/29/19 13:36) Free T4 (Free Thyroxine) (06/29/19 13:36) Creatine Kinase (06/29/19 13:36) Vital Signs/I&O 06/29/19 12:44 Temp 36.8 Pulse 87 Resp 16 B/P (MAP) 98/64 (75) Pulse Ox 99 O2 Delivery Room Air Capillary Refill : Less Than 3 Seconds Blood Pressure Mean: 75 POS Departure Impression Primary Impression: Arthralgia Qualified Codes: M25.541 - Pain in joints of right hand; M25.542 - Pain in joints of left hand Disposition: 01 HOME, SELF-CARE Condition: Stable Departure-Patient Inst. Decision time for Depature: 14:43 Referrals: [facility] (PCP) Primary Care Physician Patient Instructions: Joint Pain Add. Discharge Instructions: 1. Return to ER for any concerns 2. Follow-up with your doctor next week 3. All discharge instructions reviewed with patient and/or family. Voiced understanding. HILDA ROSADO APRN Jun 29, 2019 13:41 POS
[2019-06-29 13:59] LABS: ALANINE AMINOTRANSFERASE 16 U/L (0-55); ALBUMIN 3.8 GM/DL (3.2-4.5); ALKALINE PHOSPHATASE 53 U/L (40-136); BILIRUBIN,TOTAL 0.3 MG/DL (0.1-1.0); BUN/CREATININE RATIO 13; CALCIUM 8.5 MG/DL (8.5-10.1); CARBON DIOXIDE 24 MMOL/L (21-32); CHLORIDE 109 MMOL/L (98-107); CREATININE SERUM 0.83 MG/DL (0.60-1.30); GFR ESTIMATED > 60; GLUCOSE 91 MG/DL (70-105); POTASSIUM 3.5 MMOL/L (3.6-5.0); SODIUM 142 MMOL/L (135-145)
[2019-06-29 14:05] LABS: ERYTHROCYTE SEDIMENTATION RATE 4 MM/HR (0-20)
[2019-06-29 14:20] LABS: BILIRUBIN,URINE NEGATIVE (NEGATIVE); CLARITY,URINE CLEAR; COLOR,URINE YELLOW; GLUCOSE, URINE (UA) NEGATIVE (NEGATIVE); KETONES,URINE NEGATIVE (NEGATIVE); LEUKOCYTE ESTERASE ,URINE NEGATIVE (NEGATIVE); NITRITE,URINE NEGATIVE (NEGATIVE); PROTEIN,URINE NEGATIVE (NEGATIVE)
[2019-06-29 14:25] LABS: FREE T4 (FREE THYROXINE) 0.72 NG/DL (0.70-1.48)
[2019-06-29 14:26] LABS: BACTERIA,URINE MODERATE /HPF
[2019-06-29 14:33] LABS: AMPHETAMINE SCREEN, URINE POSITIVE (NEGATIVE); BARBITURATE SCREEN URINE NEGATIVE (NEGATIVE); BENZODIAZEPINES SCREEN URINE NEGATIVE (NEGATIVE); CANNABINOID SCREEN, URINE POSITIVE (NEGATIVE); COCAINE SCREEN URINE NEGATIVE (NEGATIVE); METHADONE STAT NEGATIVE (NEGATIVE); METHAMPHETAMINE SCREEN URINE S POSITIVE (NEGATIVE); OPIATE SCREEN URINE NEGATIVE (NEGATIVE); OXYCODONE STAT NEGATIVE (NEGATIVE); PROPOXYPHENE STAT NEGATIVE (NEGATIVE); TRICYCLIC ANTIDEPRESSANTS SCRE POSITIVE (NEGATIVE)
[2019-06-29 14:53] VITALS: BP 98/74
[2019-06-29] MEDS ORDERED: IBUPROFEN 800 MG (MOTRIN) TAB PO ONE (15:00)
== END 2019-06-29 14:53 | disposition home or self-care (01) ==
LOC: EDUNIT# 12:30 → ER 12:31
DX: M25.541 Pain in joints of right hand (principal); M25.542 Pain in joints of left hand; F41.9 Anxiety disorder, unspecified; F31.9 Bipolar disorder, unspecified; F17.210 Nicotine dependence, cigarettes, uncomplicated; J45.909 Unspecified asthma, uncomplicated; Z98.51 Tubal ligation status; Z88.0 Allergy status to penicillin; Z88.2 Allergy status to sulfonamides; Z88.1 Allergy status to other antibiotic agents; Z88.5 Allergy status to narcotic agent
CPT/HCPCS: 36415; 80053; 80306; 81000; 82550; 84439; 84443; 84703; 85025; 85652; 86141; 99283

== ENCOUNTER 2019-07-08 12:11 | Emergency (ER) | payer MEDICAID ==
[~2019-07-08] VITALS: Ht 162 cm; Wt 57.0 kg
--- NOTE | 2019-07-08 12:21 | ED Cough/URI ---
General Chief Complaint: Cough/Cold/Flu Symptoms Stated Complaint: COUGH Source: patient Exam Limitations: no limitations History of Present Illness Date Seen by Provider: Jul 08, 2019 Time Seen by Provider: 12:18 Initial Comments 33-year-old white female presents with nonproductive cough and sore throat that has been present for the past 3 days. The patient denies associated headache, photophobia, or stiff neck. He has had no associated nausea vomiting or d iarrhea. The patient's sore throat is moderately severe in nature. The patient states she is having trouble sleeping at night due to the cough. Allergies and Home Medications Allergies Coded Allergies: Penicillins (Unverified Allergy, Unknown, 04/19/16) sulfamethoxazole (Unverified Allergy, Unknown, 04/19/16) trimethoprim (Unverified Allergy, Unknown, 04/19/16) tramadol (Unverified Adverse Reaction, Mild, rash, 04/19/16) Home Medications Nitrofurantoin Macrocrystal 100 Mg Capsule, 100 MG PO BID Prescribed by: IVORY GARVIN on 05/17/18 1051 Ondansetron 4 Mg Tab.rapdis, 4 MG PO Q6H PRN for NAUSEA/VOMITING Prescribed by: IVORY GARVIN on 05/17/18 1051 Patient Home Medication List Home Medication List Reviewed: Yes Review of Systems Review of Systems Constitutional: No chills, No fever EENTM: see HPI, throat pain; No ear pain Respiratory: see HPI, cough; No short of breath, No stridor, No wheezing Gastrointestinal: No abdominal pain, No diarrhea, No nausea, No vomiting Genitourinary: no symptoms reported Musculoskeletal: no symptoms reported Skin: No rash Psychiatric/Neurological: No Symptoms Reported Hematologic/Lymphatic: No Symptoms Reported Past Gvpiffl-Pquedf-Qvvdvy Hx Past Med/Social Hx: Reviewed Nursing Past Med/Soc Hx Patient Social History Alcohol Beverage of Choice: Beer Type Used: Cigarettes 2nd Hand Smoke Exposure: Yes Recent Foreign Travel: No Contact w/Someone Who Travel: No Recent Hopitalizations: No Immunizations Up To Date Tetanus Booster (TDap): Unknown PED Vaccines UTD: No Date of Influenza Vaccine: May 11, 2017 Seasonal Allergies Seasonal Allergies: Yes Past Medical History Surgeries: Yes ([place] Teeth, Left Knee scope, Ovarian Cyst) Gallbladder, Orthopedic Respiratory: Yes Asthma, Chronic Bronchitis Currently Using CPAP: No Currently Using BIPAP: No Cardiac: No Neurological: No Reproductive Disorders: No 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 Sexually Transmitted Disease: No HIV/AIDS: No Genitourinary: No Gastrointestinal: Yes (Gallbladder ruptured) Musculoskeletal: Yes Arthritis, Fractures Endocrine: No HEENT: No Loss of Vision: Denies Hearing Impairment: Denies Cancer: No Psychosocial: Yes Anxiety, Bipolar, Depression Integumentary: No Blood Disorders: No Adverse Reaction/Blood Tranf: No Family Medical History Alcoholism 19 MOTHER G8 BROTHER G8 BROTHER G8 BROTHER Asthma 19 FATHER G8 BROTHER G8 BROTHER G8 BROTHER Diabetes mellitus Grandparents (Paternal Grandmother) Drug abuse 19 FATHER (Meth, Cocaine, Marijuana, Shrooms, Pills) Hypercholesterolemia 19 FATHER Grandparents (Maternal Grandmother) Hypertension 19 FATHER Grandparents (Paternal Grandmother) Psychosocial problem 19 FATHER (Bipolar, Anxiety) G8 BROTHER (Bipolar, Anxiety, Schizophrenia) G8 BROTHER (Bipolar, Anxiety) G8 BROTHER (Bipolar, Anxiety) Respiratory disorder G8 BROTHER (Asthma) No Pertinent Family Hx Physical Exam Vital Signs - First Documented 07/08/19 12:11 Temp 37.3 Pulse 114 Resp 18 B/P (MAP) 119/84 (96) Pulse Ox 98 Capillary Refill : Height: 5'4.00" Weight: 131lbs. 0oz. 59.604429vj; 24.00 BMI Method:Stated General Appearance: WD/WN, no apparent distress Eyes: Bilateral Eye Normal Inspection HEENT: normal ENT inspection, TMs normal, pharynx normal Neck: full range of motion, supple Respiratory: normal breath sounds, no respiratory distress Cardiovascular: normal peripheral pulses, regular rate, rhythm Gastrointestinal: normal bowel sounds, non tender, soft Extremities: normal range of motion, non-tender, normal inspection Neurologic/Psychiatric: no motor/sensory deficits, alert, normal mood/affect Skin: normal color, warm/dry Progress/Results/Core Measures Suspected Sepsis SIRS Temperature: Pulse: Respiratory Rate: Blood Pressure / Mean: Results/Orders Lab Results Laboratory Tests Test 07/08/19 12:20 Range/Units Group A Streptococcus Screen NEGATIVE NEGATIVE My Orders Orders - ANAM WINSLOW MD Rapid Strep A Screen (07/08/19 12:17) Vital Signs/I&O 07/08/19 12:11 Temp 37.3 Pulse 114 Resp 18 B/P (MAP) 119/84 (96) Pulse Ox 98 Capillary Refill : Progress Note : Time: 12:38 Progress Note The patient's rapid strep screen was negative. Departure Impression Primary Impression: Upper respiratory infection Qualified Codes: J06.9 - Acute upper respiratory infection, unspecified Disposition: HOME, SELF-CARE Condition: Unchanged Departure-Patient Inst. Decision time for Depature: 12:39 Referrals: [facility] (PCP/Family) Primary Care Physician Patient Instructions: Viral Upper Respiratory Infection, Adult (DC) Add. Discharge Instructions: Phenergan with codeine for cough. Rest at home this . Follow-up with [facility] on Wednesday. Return if any problems or questions. All discharge instructions reviewed with patient and/or family. Voiced understanding. ANAM WINSLOW MD Jul 08, 2019 12:21
[2019-07-08 12:47] VITALS: BP 119/84
== END 2019-07-08 12:47 | disposition home or self-care (01) ==
LOC: EDUNIT# 12:11 → ER 12:11
DX: J06.9 Acute upper respiratory infection, unspecified (principal); J45.909 Unspecified asthma, uncomplicated; F41.9 Anxiety disorder, unspecified; F31.9 Bipolar disorder, unspecified; Z79.82 Long term (current) use of aspirin; Z98.51 Tubal ligation status; Z88.0 Allergy status to penicillin; Z88.2 Allergy status to sulfonamides; Z88.1 Allergy status to other antibiotic agents; Z88.5 Allergy status to narcotic agent; Z77.22 Contact with and (suspected) exposure to environmental tobacco smoke (acute) (chronic)
CPT/HCPCS: 87430; 99284

== ENCOUNTER 2020-01-26 09:57 | Emergency (ER) | payer SELFPAY ==
[~2020-01-26] VITALS: Ht 162 cm; Wt 61.0 kg
[~2020-01-26 09:57] MED LIST changes: +QUET100T33 PO; -QUET100T69 PO
[2020-01-26 10:00] VITALS: BP 127/97
[2020-01-26] MEDS ORDERED: DOXYCYCLINE 100 MG (VIBRAMYCIN) TABLET PO SCH (10:15)
[2020-01-26] MEDS ORDERED: LIDOCAINE 2% 20 ML (XYLOCAINE) VIAL INJ ONE (10:15)
[2020-01-26] MEDS ORDERED: metroNIDAZOLE 500 MG (FLAGYL) TAB PO ONE (10:15)
--- NOTE | 2020-01-26 10:15 | ED Integumentary General ---
General Chief Complaint: Bite-Animal/Human/Insect Stated Complaint: R INDEX LAC Source: patient Exam Limitations: no limitations History of Present Illness Date Seen by Provider: Jan 26, 2020 Time Seen by Provider: 10:14 Initial Comments Laceration to the palmar surface left pointer finger. She has a pup at home that had a sock in its mouth, she went to [facility] from the dog's mouth and his tooth lacerated her finger. The dog is her own and up-to-date on vaccines. Timing/Duration: just prior to arrival Severity: mild Associated Symptoms: denies symptoms Allergies and Home Medications Allergies Coded Allergies: Penicillins (Unverified Allergy, Unknown, 04/19/16) sulfamethoxazole (Unverified Allergy, Unknown, 04/19/16) trimethoprim (Unverified Allergy, Unknown, 04/19/16) tramadol (Unverified Adverse Reaction, Mild, rash, 04/19/16) Home Medications Doxycycline Hyclate 100 Mg Tablet, 100 MG PO BID Prescribed by: HILDA ROSADO on 01/26/20 1020 Metronidazole 500 Mg Tablet, 500 MG PO TID Prescribed by: HILDA ROSADO on 01/26/20 1020 Patient Home Medication List Home Medication List Reviewed: Yes Review of Systems Review of Systems Constitutional: see HPI EENTM: see HPI Respiratory: no symptoms reported Cardiovascular: no symptoms reported Genitourinary: no symptoms reported Musculoskeletal: no symptoms reported Skin: no symptoms reported Psychiatric/Neurological: No Symptoms Reported Endocrine: No Symptoms Reported Hematologic/Lymphatic: No Symptoms Reported Past Fuguhoq-Aohogh-Afhlor Hx Patient Social History Alcohol Use: Denies Use Alcohol Beverage of Choice: Beer Recreational Drug Use: No Smoking Status: Current Everyday Smoker Type Used: Cigarettes 2nd Hand Smoke Exposure: Yes Recent Foreign Travel: No Contact w/Someone Who Travel: No Recent Hopitalizations: No Physical Abuse: No Sexual Abuse: No Immunizations Up To Date Tetanus Booster (TDap): Unknown PED Vaccines UTD: No Date of Influenza Vaccine: May 11, 2017 Seasonal Allergies Seasonal Allergies: Yes Past Medical History Surgeries: Yes ([place] Teeth, Left Knee scope, Ovarian Cyst) Gallbladder, Orthopedic Respiratory: Yes Asthma, Chronic Bronchitis Currently Using CPAP: No Currently Using BIPAP: No Cardiac: No Neurological: No Reproductive Disorders: No 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 Sexually Transmitted Disease: No HIV/AIDS: No Genitourinary: No Gastrointestinal: Yes (Gallbladder ruptured) Musculoskeletal: Yes Arthritis, Fractures Endocrine: No HEENT: No Loss of Vision: Denies Hearing Impairment: Denies Cancer: No Psychosocial: Yes Anxiety, Bipolar, Depression Integumentary: No Blood Disorders: No Adverse Reaction/Blood Tranf: No Family Medical History Alcoholism 19 MOTHER G8 BROTHER G8 BROTHER G8 BROTHER Asthma 19 FATHER G8 BROTHER G8 BROTHER G8 BROTHER Diabetes mellitus Grandparents (Paternal Grandmother) Drug abuse 19 FATHER (Meth, Cocaine, Marijuana, Shrooms, Pills) Hypercholesterolemia 19 FATHER Grandparents (Maternal Grandmother) Hypertension 19 FATHER Grandparents (Paternal Grandmother) Psychosocial problem 19 FATHER (Bipolar, Anxiety) G8 BROTHER (Bipolar, Anxiety, Schizophrenia) G8 BROTHER (Bipolar, Anxiety) G8 BROTHER (Bipolar, Anxiety) Respiratory disorder G8 BROTHER (Asthma) No Pertinent Family Hx Physical Exam Vital Signs Vital Signs - First Documented 01/26/20 10:00 Temp 36.5 Pulse 82 Resp 18 B/P (MAP) 127/97 (107) Pulse Ox 99 Capillary Refill : General Appearance: WD/WN, no apparent distress HEENT: PERRL/EOMI, normal ENT inspection Respiratory: no respiratory distress, no accessory muscle use Neurologic/Psychiatric: alert, normal mood/affect, oriented x 3 Skin: normal color, warm/dry Skin Problem Location: upper extremities Skin Problem Character: other (2 cm laceration to the flexor surface proximal phalanx right pointer finger depth to the subcutaneous tissue but not down to the flexor tendon) Procedures/Interventions Wound Location: Upper Extremities Wound Length (cm): 2 Wound's Depth, Shape: linear, sub Q Irrigated w/ Saline (ccs): 100 Volume Anesthetic (ccs): 3 Suture: Prolene Suture Size: 4-0 Number of Sutures: 5 Layer Closure?: 1 Number Deep Layer Sutures: 0 Progress/Results/Core Measures Results/Orders My Orders Orders - HILDA ROSADO APRN Lidocaine 2% Injection 20 Ml (Xylocaine (01/26/20 10:15) Doxycycline Hyclate Tablet (Vibramycin T (01/26/20 10:15) Metronidazole Tablet (Flagyl Tablet) (01/26/20 10:15) Dipht,Pertuss(Acell),Tet Adult (Boostrix (01/26/20 10:30) Lidocaine 1% Inj 20 Ml (Xylocaine 1% Inj (01/26/20 10:16) Dipht,Pertuss(Acell),Tet Adult (Boostrix (01/26/20 10:16) Medications Given in ED Current Medications Medications Dose Ordered Sig/Chirag Route Start Time Stop Time Status Last Admin Dose Admin Diphtheria/ Tetanus/Acell Pertussis 0.5 ml ONCE ONCE IM 01/26/20 10:30 01/26/20 10:31 DC 01/26/20 10:21 0.5 ML Lidocaine HCl 20 ml STK-MED ONCE .ROUTE 01/26/20 10:16 01/26/20 10:19 DC 01/26/20 10:23 20 ML Metronidazole 500 mg ONCE ONCE PO 01/26/20 10:15 01/26/20 10:16 DC 01/26/20 10:22 500 MG Vital Signs/I&O 01/26/20 10:00 Temp 36.5 Pulse 82 Resp 18 B/P (MAP) 127/97 (107) Pulse Ox 99 Departure Impression Primary Impression: Dog bite Qualified Codes: W54.0XXA - Bitten by dog, initial encounter Disposition: HOME, SELF-CARE Condition: Stable Departure-Patient Inst. Decision time for Depature: 10:19 [address]: [facility] [place] ([place]) Primary Care Physician Patient Instructions: Animal Bites (DC) Add. Discharge Instructions: All discharge instructions reviewed with patient and/or family. Voiced understanding. Return to ER for any sign of infection such as redness or swelling. Take the antibiotics as directed. Return to ER in about 10 days to have stitches removed. You can shower letting water run over this starting today. 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
[2020-01-26] MEDS ORDERED: TETANUS,DIPTH,PERTUSS P/F (BOOSTRIX) 0.5 ML VIAL IM ONE ×2 (10:16→10:30)
[2020-01-26] MEDS ORDERED: LIDOCAINE 1% INJ 20 ML 20 ML VIAL ONE (10:16)
[2020-01-26] MEDS ORDERED: METR-145 PO (10:20)
[2020-01-26] MEDS ORDERED: DOXY100T2 PO (10:20)
== END 2020-01-26 10:38 | disposition home or self-care (01) ==
LOC: EDUNIT# 09:57 → ER 09:58
DX: S61.210A Laceration without foreign body of right index finger without damage to nail, initial encounter (principal); F17.210 Nicotine dependence, cigarettes, uncomplicated; Z88.0 Allergy status to penicillin; Z88.2 Allergy status to sulfonamides; Z88.1 Allergy status to other antibiotic agents; Z88.5 Allergy status to narcotic agent; Z82.49 Family history of ischemic heart disease and other diseases of the circulatory system; Z23 Encounter for immunization; W54.0XXA Bitten by dog, initial encounter
CPT/HCPCS: 12032; 90715

== ENCOUNTER 2021-05-09 03:21 | Emergency (ER) | payer SELFPAY ==
[~2021-05-09] VITALS: Ht 64 cm; Wt 49.9 kg
[~2021-05-09 03:21] MED LIST changes: -CIPR500T4 PO; +CIPR500T5 PO; +CLN.1T PO; -CLON0.1T PO; -DICL100T83 PO; -DOCU-238 PO; +DOCU-26 PO; +DOXY100T2 PO; +NF-DICLOTA PO; -OXYC-465 PO; +OXYC-556 PO
[2021-05-09] MEDS ORDERED: ONDANSETRON 4 MG (ZOFRAN) ORAL DISSOLVE TAB PO STA (03:35)
--- NOTE | 2021-05-09 03:42 | ED Cough/URI ---
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 She feels the same way as when she had Covid several months ago. She has no Covid vaccine nor has she had influenza vaccine. She is nauseated and has vomited prior to coming into the ER. No diarrhea. Her boyfriend is sick with similar sinus symptoms. Last antipyretic was 600 mg of ibuprofen 2:00 yesterday afternoon. She states she has had a tubal ligation. Penicillin gives her a rash and makes her itch however she has had amoxicillin and Augmentin before without issues. Allergies and Home Medications Allergies Coded Allergies: Penicillins (Unverified Allergy, Unknown, 04/19/16) sulfamethoxazole (Unverified Allergy, Unknown, 04/19/16) trimethoprim (Unverified Allergy, Unknown, 04/19/16) tramadol (Unverified Adverse Reaction, Mild, rash, 04/19/16) Patient Home Medication List Home Medication List Reviewed: Yes Amoxicillin/Potassium Clav (Augmentin 875-125 Tablet) 1 Each Tablet, 1 EACH PO BID Prescribed by: COLEMAN HARDY on 05/09/21 0350 Doxycycline Hyclate (Doxycycline Hyclate) 100 Mg Tablet, 100 MG PO BID Prescribed by: HILDA ROSADO on 01/26/20 1020 Metronidazole (Metronidazole) 500 Mg Tablet, 500 MG PO TID Prescribed by: HILDA ROSADO on 01/26/20 1020 Review of Systems Review of Systems Constitutional: chills, fever, malaise EENTM: No ear discharge, No hearing loss Respiratory: cough; No phlegm; short of breath Cardiovascular: No chest pain, No palpitations Gastrointestinal: No abdominal pain; nausea, vomiting Genitourinary: No discharge, No dysuria Musculoskeletal: No back pain, No joint pain Skin: No pruritus, No rash All Other Systems Reviewed Negative Unless Noted: Yes Past Qiqwzeq-Xwtltk-Ybrlmc Hx Patient Social History Tobacco Use?: Yes Use of E-Cig and/or Vaping dev: No Substance use?: Yes Substance type: Marijuana Immunizations Up To Date Tetanus Booster (TDap): Unknown PED Vaccines UTD: No Seasonal Allergies Seasonal Allergies: Yes Past Medical History Surgeries: Yes ([place] Teeth, Left Knee scope, Ovarian Cyst) Gallbladder, Orthopedic Respiratory: Yes Asthma, Chronic Bronchitis Currently Using CPAP: No Currently Using BIPAP: No Cardiac: No Neurological: No Reproductive Disorders: No 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 Sexually Transmitted Disease: No HIV/AIDS: No Genitourinary: No Gastrointestinal: Yes (Gallbladder ruptured) Musculoskeletal: Yes Arthritis, Fractures Endocrine: No HEENT: No Loss of Vision: Denies Hearing Impairment: Denies Cancer: No Psychosocial: Yes Anxiety, Bipolar, Depression Integumentary: No Blood Disorders: No Adverse Reaction/Blood Tranf: No Family Medical History Alcoholism 19 MOTHER G8 BROTHER G8 BROTHER G8 BROTHER Asthma 19 FATHER G8 BROTHER G8 BROTHER G8 BROTHER Diabetes mellitus Grandparents (Paternal Grandmother) Drug abuse 19 FATHER (Meth, Cocaine, Marijuana, Shrooms, Pills) Hypercholesterolemia 19 FATHER Grandparents (Maternal Grandmother) Hypertension 19 FATHER Grandparents (Paternal Grandmother) Psychosocial problem 19 FATHER (Bipolar, Anxiety) G8 BROTHER (Bipolar, Anxiety, Schizophrenia) G8 BROTHER (Bipolar, Anxiety) G8 BROTHER (Bipolar, Anxiety) Respiratory disorder G8 BROTHER (Asthma) No Pertinent Family Hx Physical Exam Vital Signs - First Documented 05/09/21 03:25 Temp 36.3 Pulse 84 Resp 18 B/P (MAP) 133/71 (91) Pulse Ox 99 O2 Delivery Room Air Capillary Refill : Height: 5'4.00" Weight: 131lbs. 0oz. [id number]; 23.00 BMI Method:Stated General Appearance: WD/WN, no apparent distress Eyes: Bilateral Eye Normal Inspection, Bilateral Eye PERRL, Bilateral Eye EOMI HEENT: PERRL/EOMI, normal ENT inspection, TMs normal, pharynx normal (Oral mucosa is moist) Neck: full range of motion, supple, normal inspection Respiratory: lungs clear, normal breath sounds, no respiratory distress, no accessory muscle use Cardiovascular: normal peripheral pulses, regular rate, rhythm Neurologic/Psychiatric: alert, normal mood/affect, oriented x 3 Skin: normal color, warm/dry Procedures/Interventions Suture Size: 4-0 Progress/Results/Core Measures Suspected Sepsis SIRS Temperature: Pulse: Respiratory Rate: Blood Pressure / Mean: Results/Orders Lab Results Laboratory Tests Test 05/09/21 03:36 Range/Units Influenza Type A (RT-PCR) Not Detected Not Detecte Influenza Type B (RT-PCR) Not Detected Not Detecte SARS-CoV-2 RNA (RT-PCR) Detected H Not Detecte My Orders Orders - COLEMAN HARDY Ondansetron Oral Dissolve Tab (Zofran (05/09/21 03:35) Ketorolac Injection (Toradol Injection) (05/09/21 03:45) Covid 19 Inhouse Test (05/09/21 03:35) Influenza A And B By Pcr (05/09/21 03:35) Medications Given in ED Current Medications Medications Dose Ordered Sig/Chirag Route Start Time Stop Time Status Last Admin Dose Admin Ketorolac Tromethamine 60 mg ONCE ONCE IM 05/09/21 03:45 05/09/21 03:46 DC 05/09/21 03:51 60 MG Vital Signs/I&O 05/09/21 05/09/21 03:25 03:25 Temp 36.3 Pulse 84 Resp 18 B/P (MAP) 133/71 (91) Pulse Ox 99 O2 Delivery Room Air Room Air Capillary Refill : Progress Note : Time: 03:46 Progress Note Stable, aseptic vital signs. Likely a viral syndrome. She does seem to have some pressure over her maxillary sinus consistent with a bacterial sinusitis. We will put her on Augmentin since she is tolerated it in the past. Covid and influenza swabs were obtained. Toradol and Zofran. Departure Impression Primary Impression: Maxillary sinusitis, acute Qualified Codes: J01.00 - Acute maxillary sinusitis, unspecified Additional Impression: COVID-19 Disposition: 01 HOME, SELF-CARE Condition: Stable Departure-Patient Inst. Decision time for Depature: 04:05 Referrals: [facility] (PCP/Family) Primary Care Physician Patient Instructions: Sinusitis, Adult (DC), COVID-19 (DC) Add. Discharge Instructions: Augmentin 1 tablet twice a day with food. Drink lots of fluids. Zofran 1 to 2 tablets every 6 hours under the tongue as necessary for nausea or vomiting. Ibuprofen 800 mg every 8 hours as necessary for pain. Tylenol 1000 mg every 8 hours as necessary for pain. Humidifiers, vapor rubs such as Vicks or Mentholatum and plenty of rest. You may return off of isolation after 10 days from the start of symptoms and you are fever free for the final 24 hours. Scripts Ondansetron (Ondansetron Odt) 4 Mg Tab.rapdis 4-8 MG PO Q6H PRN for NAUSEA/VOMITING, #15 TAB 0 Refills Prov: COLEMAN HARDY 05/09/21 Amoxicillin/Potassium Clav (Augmentin 875-125 Tablet) 1 Each Tablet 1 EACH PO BID for 10 Days, #20 TAB 0 Refills Prov: COLEMAN HARDY 05/09/21 Work/School Note: Work Release Form Date Seen in the Emergency Department: May 09, 2021 Return to Work: May 16, 2021 Restrictions: Return-No Fever (24hrs) Other Restrictions Listed Below: Off isolation when 24 hours symptom-free after 10 days. COLEMAN HARDY May 09, 2021 03:42
[2021-05-09] MEDS ORDERED: KETOROLAC 60 MG/2 ML VIAL IM ONE (03:45)
[2021-05-09] MEDS ORDERED: AMOX-358 PO (03:50)
[2021-05-09] MEDS ORDERED: ONDA4TAB11 PO (04:08)
[2021-05-09 04:15] VITALS: BP 133/71
== END 2021-05-09 04:17 | disposition home or self-care (01) ==
LOC: EDUNIT# 03:21 → ER 03:26
DX: U07.1 COVID-19 (principal); J01.00 Acute maxillary sinusitis, unspecified
CPT/HCPCS: 87636; 99284

== ENCOUNTER 2022-02-22 15:57 | Emergency (ER) | payer SELFPAY ==
[~2022-02-22] VITALS: Ht 163 cm; Wt 53.0 kg
[~2022-02-22 15:57] MED LIST changes: +AMOX-358 PO; +CYCL10TA25 PO; -CYCL10TA9 PO; +DICY20TA PO; -DICY20TA10 PO
[2022-02-22] MEDS ORDERED: METH-732 PO (16:32)
--- NOTE | 2022-02-22 16:33 | ED Chest Pain ---
General Chief Complaint: Chest Wall Stated Complaint: L RIB PAIN Nursing Triage Note: PT STATES LT RIB PAIN FROM FLYING OFF OF A TUBE Source: patient Exam Limitations: no limitations History of Present Illness Date Seen by Provider: Feb 22, 2022 Time Seen by Provider: 16:20 Initial Comments Patient is a 35-year-old female who presents to the emergency department with a chief complaint of left rib/chest wall pain. She was tubing yesterday and came off of the tube and had immediate pain in the left lateral chest wall. No shortness of breath no productive cough, no hemoptysis. She states when she was raising her arm she thought that her rib appeared to be "out of place". She has taken some ibuprofen and Tylenol without much relief. She has been an ice pack on it. She was concerned that she might have a fracture and is requesting an x- ray. All other ROS reviewed and negative except as stated. Timing/Duration: 24 hours Severity/Quality: moderate Location: other (left mid lateral chest wall) Radiation: no radiation Activities at Onset: activity (tubing) ASA po CARPET JACK: No NTG SL CARPET JACK: No Associated Symptoms: swelling/lump in chest Allergies and Home Medications Allergies Coded Allergies: Penicillins (Unverified Allergy, Unknown, 04/19/16) sulfamethoxazole (Unverified Allergy, Unknown, 04/19/16) trimethoprim (Unverified Allergy, Unknown, 04/19/16) tramadol (Unverified Adverse Reaction, Mild, rash, 04/19/16) Patient Home Medication List Home Medication List Reviewed: Yes Amoxicillin/Potassium Clav (Augmentin 875-125 Tablet) 1 Each Tablet, 1 EACH PO BID Prescribed by: COLEMAN HARDY on 05/09/21 0350 Doxycycline Hyclate (Doxycycline Hyclate) 100 Mg Tablet, 100 MG PO BID Prescribed by: HILDA ROSADO on 01/26/20 1020 Methocarbamol (Methocarbamol) 750 Mg Tablet, 750 MG PO Q6-8HR Prescribed by: SONIA CRUZ on 02/22/22 1632 Metronidazole (Metronidazole) 500 Mg Tablet, 500 MG PO TID Prescribed by: HILDA ROSADO on 01/26/20 1020 Ondansetron (Ondansetron Odt) 4 Mg Tab.rapdis, 4-8 MG PO Q6H PRN for NAUSEA/VOMITING Prescribed by: COLEMAN HARDY on 05/09/21 0408 Review of Systems Review of Systems Constitutional: see HPI EENTM: No Symptoms Reported Respiratory: No Symptoms Reported Cardiovascular: Chest Pain (left mid rib pain) Gastrointestinal: No Symptoms Reported Genitourinary: No Symptoms Reported Musculoskeletal: no symptoms reported Skin: no symptoms reported All Other Systems Reviewed Negative Unless Noted: Yes Past Dcvlhpf-Vukedd-Mjztpz Hx Patient Social History Tobacco Use?: Yes Smoking Status: Current Someday Smoker Use of E-Cig and/or Vaping dev: Yes E-Cig or Vaping type used: Nicotine Substance use?: No Alcohol Use?: Yes Alcohol type: Other Alcohol Frequency: Rarely Immunizations Up To Date Tetanus Booster (TDap): Unknown PED Vaccines UTD: No Seasonal Allergies Seasonal Allergies: Yes Past Medical History Surgery/Hospitalization HX: TUBAL LIGATION, LT KNEE Surgeries: Yes ([place] Teeth, Left Knee scope, Ovarian Cyst) Gallbladder, Orthopedic Respiratory: Yes Asthma, Chronic Bronchitis Currently Using CPAP: No Currently Using BIPAP: No Cardiac: No Neurological: No Reproductive Disorders: No 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 Sexually Transmitted Disease: No HIV/AIDS: No Genitourinary: No Gastrointestinal: Yes (Gallbladder ruptured) Musculoskeletal: Yes Arthritis, Fractures Endocrine: No HEENT: No Loss of Vision: Denies Hearing Impairment: Denies Cancer: No Psychosocial: Yes Anxiety, Bipolar, Depression Integumentary: No Blood Disorders: No Adverse Reaction/Blood Tranf: No Family Medical History Alcoholism 19 MOTHER G8 BROTHER G8 BROTHER G8 BROTHER Asthma 19 FATHER G8 BROTHER G8 BROTHER G8 BROTHER Diabetes mellitus Grandparents (Paternal Grandmother) Drug abuse 19 FATHER (Meth, Cocaine, Marijuana, Shrooms, Pills) Hypercholesterolemia 19 FATHER Grandparents (Maternal Grandmother) Hypertension 19 FATHER Grandparents (Paternal Grandmother) Psychosocial problem 19 FATHER (Bipolar, Anxiety) G8 BROTHER (Bipolar, Anxiety, Schizophrenia) G8 BROTHER (Bipolar, Anxiety) G8 BROTHER (Bipolar, Anxiety) Respiratory disorder G8 BROTHER (Asthma) No Pertinent Family Hx Physical Exam Vital Signs Vital Signs - First Documented 02/22/22 16:03 Temp 37.2 Pulse 92 Resp 18 B/P (MAP) 120/79 (93) Pulse Ox 98 O2 Delivery Room Air Capillary Refill : Less Than 3 Seconds Height, Weight, BMI Height: 5'4.00" Weight: 131lbs. 0oz. 59.075312nb; 19.00 BMI Method:Stated General Appearance: No Apparent Distress, WD/WN Neck: Normal Inspection Respiratory: Lungs Clear, Normal Breath Sounds, No Accessory Muscle Use, No Respiratory Distress, Other (tenderness to left lateral ribs - about 5/6. no crepitance; no subQ emphysema; no swelling. no erythema) Cardiovascular: Regular Rate, Rhythm Extremity: Normal Capillary Refill, Normal Inspection, Normal Range of Motion, Non Tender, No Calf Tenderness, No Pedal Edema Neurologic/Psychiatric: Alert, Oriented x3, No Motor/Sensory Deficits, Normal Mood/Affect, respiratory director II-XII Norm as Tested Skin: Normal Color, Warm/Dry Procedures/Interventions Suture Size: 4-0 Progress/Results/Core Measures Results/Orders Vital Signs/I&O 02/22/22 02/22/22 16:03 16:44 Temp 37.2 37.2 Pulse 92 92 Resp 18 18 B/P (MAP) 120/79 (93) 120/79 Pulse Ox 98 98 O2 Delivery Room Air Room Air Blood Pressure Mean: 93 Progress Progress Note : Time: 16:36 Progress Note After examining the patient I noted that she has no crepitance or subcu emphysema. The rib is indeed not out of place. It is tender to the touch. Recommended continued NSAIDs and a little muscle relaxer with hot and cold packs. She is comfortable with plan of care. All questions are sought and answered. Patient is stable for discharge. Counseling-Symptomatic: 3-10 Minutes Follow-up with PCP to: Discuss Further Options Departure Impression Primary Impression: Rib pain Disposition: 01 HOME, SELF-CARE Condition: Stable Departure-Patient Inst. Decision time for Depature: 16:30 Referrals: [facility] (PCP/Family) Primary Care Physician Patient Instructions: Bruised Rib (DC) Add. Discharge Instructions: Alternate heat and ice to the sore area of your chest wall. Take EITHER Naproxen 2 tablets with food twice a day OR Ibuprofen 600mg (3 pills) every 6 hours with food as needed for pain. Muscle relaxer 3 times daily as needed. Return to the Emergency Department for worsening pain, shortness of breath, cough with blood in your sputum, or any other emergent, concerning symptoms. Scripts Methocarbamol (Methocarbamol) 750 Mg Tablet 750 MG PO Q6-8HR for Back Pain, #12 TAB Prov: SONIA CRUZ MD 02/22/22 Copy Copies To 1: MARIANO DOBBS KATHRYN M MD Feb 22, 2022 16:33
[2022-02-22 16:44] VITALS: BP 120/79
== END 2022-02-22 16:43 | disposition home or self-care (01) ==
LOC: EDUNIT# 15:57 → ER 15:59
DX: R07.81 Pleurodynia (principal); F17.290 Nicotine dependence, other tobacco product, uncomplicated; Z28.310 Unvaccinated for COVID-19
CPT/HCPCS: 99281

== ENCOUNTER 2022-04-03 06:02 | Emergency (ER) | payer SELFPAY ==
[~2022-04-03] VITALS: Ht 162.6 cm; Wt 56.7 kg
[~2022-04-03 06:02] MED LIST changes: +METH-732 PO
[2022-04-03 06:29] LABS: BASOPHILS % (AUTO) 0 % (0-10); EOSINOPHILS # (AUTO) 0.2 10^3/uL (0.0-0.3); EOSINOPHILS % (AUTO) 2 % (0-10); HEMATOCRIT 38 % (35-52); HEMOGLOBIN 12.4 g/dL (11.5-16.0); LYMPHOCYTES % (AUTO) 27 % (12-44); MEAN CORPUSCULAR HEMOGLOBIN 31 pg (25-34); MEAN CORPUSCULAR HGB CONC 33 g/dL (32-36); MEAN CORPUSCULAR VOLUME 94 fL (80-99); MEAN PLATELET VOLUME 8.5 fL (9.0-12.2); MONOCYTES # (AUTO) 0.5 10^3/uL (0.0-1.0); MONOCYTES % (AUTO) 7 % (0-12); NEUTROPHILS # (AUTO) 4.8 10^3/uL (1.8-7.8); NEUTROPHILS % (AUTO) 63 % (42-75); PLATELET COUNT 292 10^3/uL (130-400); WHITE BLOOD COUNT 7.5 10^3/uL (4.3-11.0)
--- NOTE | 2022-04-03 06:31 | ED Neurological Problem ---
General Chief Complaint: Eye Problems Stated Complaint: LEFT SIDE OF FACE NUMB,HARD TO SEE Source: patient Exam Limitations: no limitations History of Present Illness Date Seen by Provider: Apr 03, 2022 Time Seen by Provider: 06:16 Initial Comments Patient is a 36yo female who woke up this morning with blurry vision and double vision. She states she ate dinner last night and drank some whiskey. She woke up at 0500 and just thought she was still drunk. She states that she rubbed her eyes and noticed that she was seeing double. It makes her a little nauseated to try and focus and she has a mild bitemporal headache ("4"). She denies any trauma or falls/head injuries. She is not on any daily medications and has not taken anything this morning over the counter. SHe denies any recent illnesses, f/c/URI symptoms or GI symptoms. SHe has had BTL 3-4y ago, cholecystectomy and left knee scope. She does feel like her right eye is "droopy". She denies speech or swallowing difficulties. No extremity numbness, weakness or tingling. All other ROS reviewed and negative except as stated. Timing/Duration: 1-3 hours (on awakening) Severity: moderate Associated Symptoms: nausea/vomiting, other (headache) Allergies and Home Medications Allergies Coded Allergies: Penicillins (Unverified Allergy, Unknown, 04/19/16) sulfamethoxazole (Unverified Allergy, Unknown, 04/19/16) trimethoprim (Unverified Allergy, Unknown, 04/19/16) tramadol (Unverified Adverse Reaction, Mild, rash, 04/19/16) Patient Home Medication List Home Medication List Reviewed: Yes Amoxicillin/Potassium Clav (Augmentin 875-125 Tablet) 1 Each Tablet, 1 EACH PO BID Prescribed by: COLEMAN HARDY on 05/09/21 0350 Doxycycline Hyclate (Doxycycline Hyclate) 100 Mg Tablet, 100 MG PO BID Prescribed by: HILDA ROSADO on 01/26/20 1020 Methocarbamol (Methocarbamol) 750 Mg Tablet, 750 MG PO Q6-8HR Prescribed by: SONIA CRUZ on 02/22/22 1632 Metronidazole (Metronidazole) 500 Mg Tablet, 500 MG PO TID Prescribed by: HILDA ROSADO on 01/26/20 1020 Ondansetron (Ondansetron Odt) 4 Mg Tab.rapdis, 4-8 MG PO Q6H PRN for NAUSEA/VOMITING Prescribed by: COLEMAN HARDY on 05/09/21 0408 Review of Systems Review of Systems Constitutional: see HPI Eyes: Vision Changes Ears, Nose, Mouth, Throat: no symptoms reported Respiratory: no symptoms reported Cardiovascular: no symptoms reported Gastrointestinal: no symptoms reported Genitourinary: no symptoms reported : No Musculoskeletal: no symptoms reported Skin: no symptoms reported Psychiatric/Neurological: Headache, Other (double vision) All Other Systems Reviewed Negative Unless Noted: Yes Past Pyjwoww-Exvgcn-Rdshnc Hx Immunizations Up To Date Tetanus Booster (TDap): Unknown PED Vaccines UTD: No Seasonal Allergies Seasonal Allergies: Yes Past Medical History Surgery/Hospitalization HX: TUBAL LIGATION, LT KNEE Surgeries: Yes ([place] Teeth, Left Knee scope, Ovarian Cyst) Gallbladder, Orthopedic Respiratory: Yes Asthma, Chronic Bronchitis Currently Using CPAP: No Currently Using BIPAP: No Cardiac: No Neurological: No Reproductive Disorders: No Female Reproductive Disorders: Ovarian Cyst GUIDE History: Tubal Ligation Sexually Transmitted Disease: No HIV/AIDS: No Genitourinary: No Gastrointestinal: Yes (Gallbladder ruptured) Musculoskeletal: Yes Arthritis, Fractures Endocrine: No HEENT: No Loss of Vision: Denies Hearing Impairment: Denies Cancer: No Psychosocial: Yes Anxiety, Bipolar, Depression Integumentary: No Blood Disorders: No Adverse Reaction/Blood Tranf: No Family Medical History Alcoholism 19 MOTHER G8 BROTHER G8 BROTHER G8 BROTHER Asthma 19 FATHER G8 BROTHER G8 BROTHER G8 BROTHER Diabetes mellitus Grandparents (Paternal Grandmother) Drug abuse 19 FATHER (Meth, Cocaine, Marijuana, Shrooms, Pills) Hypercholesterolemia 19 FATHER Grandparents (Maternal Grandmother) Hypertension 19 FATHER Grandparents (Paternal Grandmother) Psychosocial problem 19 FATHER (Bipolar, Anxiety) G8 BROTHER (Bipolar, Anxiety, Schizophrenia) G8 BROTHER (Bipolar, Anxiety) G8 BROTHER (Bipolar, Anxiety) Respiratory disorder G8 BROTHER (Asthma) No Pertinent Family Hx Physical Exam Vital Signs Vital Signs - First Documented 04/03/22 06:26 Temp 36.4 Pulse 83 Resp 18 B/P (MAP) 125/55 (78) Pulse Ox 96 O2 Delivery Room Air Capillary Refill : Height, Weight, BMI Height: 5'4.00" Weight: 131lbs. 0oz. [id number]; 19.00 BMI Method:Stated General Appearance: WD/WN, no apparent distress HEENT: normal ENT inspection, TMs normal, pharynx normal, other (PERRL; Right eye medial gaze palsey; as pupils are midline the LEFT EYE drifts to the lateral position, she is able to correct this with re-focusing. 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, no motor/sensory deficits, alert, normal mood/affect, oriented x 3 Crainal Nerves: normal hearing, normal speech, PERRL, abnormal eye position; No abnormal gag reflex, No abnormal pupil position; facial asymmetry (right eye with ptosis); No facial droop, No facial paresthesias, No facial weakness; gaze palsy; No hearing deficit (R), No hearing deficit (L), No tongue deviation to R, No tongue deviation to L Coordination/Gait: normal finger to nose, normal gait, negative Romberg's sign Motor/Sensory: no motor deficit, no sensory deficit, no pronator drift Skin: normal color, warm/dry Stroke Onset of Symptoms Date of Onset of Symptoms: Apr 03, 2022 Time of Symptom Onset: 05:00 Onset of Symptoms: No Symptoms onset unknown: Yes NIH Stroke Scale Assessment Select: Initial Level of Consciousness: 0=Alert (0), Level of Consciousness- Questions: 0=Answers both month/age (0), Gaze: Partial Gaze Palsy (1), Visual Chan: 0=No visual loss (0), Facial Movement (Facial Paresis): 0=Normal symmetrical mnt (0), Motor Function-Arms Right: 0=No drift (0), Motor Function-Arms Left: 0=No drift (0), Motor Function-Legs Right: 0=No drift (0), Motor Function-Legs Left: 0=No drift (0), Limb Ataxia: 0=Absent (0), Sensory: 0=Normal:no loss (0), Best Language: 0=No aphasia (0), Dysarthria: 0=Normal (0), Extinction & Inattention: 0=No abnormality (0), Total: 1 Stroke Thrombolytic Exclusion Age 18 or Over: Yes Acute intenal hemorrhage: No History of CVA: No Uncontrolled Coagulation Defec: No Intracranial Hemorrhage: No Severe Hypertension: No GI or Bleed: No Subarachnoid Hemorrhage: No Intracranial Neoplasm/Aneurysm: No Oral Anticoagulants: No Surgery or Trauma: No Puncture of Non-Compressible V: No Recent CPR: No Diabetic Hemorrhagic Retinopat: No Organ Biopsy: No Recent Obstetric Delivery: No Glucose: No Significant Hepatic Dysfunctio: No NIH Stoke Scale >22: No Bacterial Endocarditis: No Pericarditis: No Improving Symptoms: Yes Platelets: Yes TPA Contraindication: Yes IV - TPa Received IV - TPa Procedure Performed?: No Procedures/Interventions Suture Size: 4-0 Progress/Results/Core Measures Results/Orders Lab Results Laboratory Tests Test 04/03/22 06:17 04/03/22 06:22 04/03/22 07:53 Range/Units Glucometer 81 70-110 MG/DL White Blood Count 7.5 4.3-11.0 10^3/uL Red Blood Count 4.00 3.80-5.11 10^6/uL Hemoglobin 12.4 11.5-16.0 g/dL Hematocrit 38 35-52 % Mean Corpuscular Volume 94 80-99 fL Mean Corpuscular Hemoglobin 31 25-34 pg Mean Corpuscular Hemoglobin Concent 33 32-36 g/dL Red Cell Distribution Width 13.4 10.0-14.5 % Platelet Count 292 130-400 10^3/uL Mean Platelet Volume 8.5 L 9.0-12.2 fL Immature Granulocyte % (Auto) 0 % Neutrophils (%) (Auto) 63 42-75 % Lymphocytes (%) (Auto) 27 12-44 % Monocytes (%) (Auto) 7 0-12 % Eosinophils (%) (Auto) 2 0-10 % Basophils (%) (Auto) 0 0-10 % Neutrophils # (Auto) 4.8 1.8-7.8 10^3/uL Lymphocytes # (Auto) 2.0 1.0-4.0 10^3/uL Monocytes # (Auto) 0.5 0.0-1.0 10^3/uL Eosinophils # (Auto) 0.2 0.0-0.3 10^3/uL Basophils # (Auto) 0.0 0.0-0.1 10^3/uL Immature Granulocyte # (Auto) 0.0 0.0-0.1 10^3/uL Erythrocyte Sedimentation Rate 4 0-20 MM/HR Prothrombin Time 12.9 12.2-14.7 SEC INR Comment 0.9 0.8-1.4 Activated Partial Thromboplast Time 30 24-35 SEC Sodium Level 140 135-145 MMOL/L Potassium Level 3.8 3.6-5.0 MMOL/L Chloride Level 107 98-107 MMOL/L Carbon Dioxide Level 19 L 21-32 MMOL/L Anion Gap 14 5-14 MMOL/L Blood Urea Nitrogen 18 7-18 MG/DL Creatinine 0.77 0.60-1.30 MG/DL Estimat Glomerular Filtration Rate 104 BUN/Creatinine Ratio 23 Glucose Level 88 70-105 MG/DL Calcium Level 8.7 8.5-10.1 MG/DL Corrected Calcium 8.6 8.5-10.1 MG/DL Total Bilirubin 0.2 0.1-1.0 MG/DL Aspartate Amino Transf (AST/SGOT) 15 5-34 U/L Alanine Aminotransferase (ALT/SGPT) 15 0-55 U/L Alkaline Phosphatase 71 40-136 U/L C-Reactive Protein High Sensitivity 0.12 0.00-0.50 MG/DL Total Protein 6.7 6.4-8.2 GM/DL Albumin 4.1 3.2-4.5 GM/DL Serum Test, Qualitative NEGATIVE NEGATIVE Urine Opiates Screen NEGATIVE NEGATIVE Urine Oxycodone Screen NEGATIVE NEGATIVE Urine Methadone Screen NEGATIVE NEGATIVE Urine Propoxyphene Screen NEGATIVE NEGATIVE Urine Barbiturates Screen NEGATIVE NEGATIVE Ur Tricyclic Antidepressants Screen NEGATIVE NEGATIVE Urine Phencyclidine Screen NEGATIVE NEGATIVE Urine Amphetamines Screen NEGATIVE NEGATIVE Urine Methamphetamines Screen NEGATIVE NEGATIVE Urine Benzodiazepines Screen NEGATIVE NEGATIVE Urine Cocaine Screen NEGATIVE NEGATIVE Urine Cannabinoids Screen POSITIVE H NEGATIVE My Orders Orders - SONIA CRUZ MD Ekg Tracing (04/03/22 06:14) Ct Angio Head/Neck (04/03/22 06:22) Ed Iv/Invasive Line Start (04/03/22 06:22) Cbc With Automated Diff (04/03/22 06:22) Comprehensive Metabolic Panel (04/03/22 06:22) Protime With Inr (04/03/22 06:22) Partial Thromboplastin Time (04/03/22 06:22) Chest 1 View, Ap/Pa Only (04/03/22 06:22) Drug Screen Stat (Urine) (04/03/22 06:22) Hcg,Qualitative Serum (04/03/22 06:22) Erythrocyte Sedimentation Rate (04/03/22 06:33) Hs C Reactive Protein (04/03/22 06:33) Iohexol Injection (Omnipaque 350 Mg/Ml 1 (04/03/22 07:45) Received Contrast (Hold Metformin- Contr (04/03/22 07:45) Ns (Ivpb) (Sodium Chloride 0.9% Ivpb Bag (04/03/22 07:45) Ketorolac Injection (Toradol Injection) (04/03/22 08:00) Ondansetron Injection (Zofran Injectio (04/03/22 08:00) Ns Iv 1000 Ml (Sodium Chloride 0.9%) (04/03/22 08:00) Mri Brain W/Wo Contrast (04/03/22 08:50) Gadoterate Inj (Radiology) (Clariscan In (04/03/22 09:30) Medications Given in ED Vital Signs/I&O 04/03/22 04/03/22 06:26 10:18 Temp 36.4 36.2 Pulse 83 84 Resp 18 17 B/P (MAP) 125/55 (78) 129/75 Pulse Ox 96 98 O2 Delivery Room Air Room Air Progress Progress Note : Time: 08:56 Progress Note Case discussed with Dr Paul, [facility] stroke Neuro; She recommended MRI brain w/wo for MS with a cute vision complaints. I reviewed entirety of exam with Neurologist and there is no acute concern for stroke. (she would be outside window regardless due to time of onset). Patient re-examined and her symptoms have, at this point completely resolved. SHe has FULL EOM movement and no vision complaints. MASTERSON is resolved. Will still go ahead and finish out with the MRI. Patient is comfortable with plan of care. Initial ECG Impression Date: Apr 03, 2022 Initial ECG Impression Time: 06:22 Initial ECG Rate: 78 Initial ECG Rhythm: Normal Sinus Initial ECG Intervals: Normal Initial ECG Impression: Nonspecific Changes Diagnostic Imaging Diagonstic Imaging: Xray Plain Films/CT/US/NM/MRI: chest Comments [facility], [place] NAME: JESUS ROSS [facility] REC#: [id number] PT STATUS: REG ER : 1985 PHYSICIAN: SONIA CRUZ MD ADMIT DATE: 04/03/22/ER Draft Date of Exam:04/03/22 CHEST 1 VIEW, AP/PA ONLY INDICATION: Focal neurological deficit COMPARISON: 04/18/2016 FINDINGS: Lungs clear. No failure, effusion or pneumothorax. IMPRESSION: No acute appearing abnormality. Dictated on workstation # [id number] Dict: 04/03/22 0746 Trans: 04/03/22 0753 [facility] [id number] Interpreted by: YOUSUF BYRD Electronically signed by: Diagonstic Imaging: CT Comments [facility], [place] NAME: JESUS ROSS [facility] REC#: [id number] PT STATUS: REG ER : 1985 PHYSICIAN: SONIA CRUZ MD ADMIT DATE: 04/03/22/ER Draft Date of Exam:04/03/22 CT ANGIO HEAD/NECK PROCEDURE: CT angiography of the head and CT angiography of the neck with and without contrast. TECHNIQUE: Contiguous noncontrast images were obtained from the skull base through the vertex. After intravenous contrast administration, helical CT angiography of the neck was performed. Source data was reformatted into 3D MIP projections. Delayed post contrast acquisition was also obtained. Auto Exposure Controls were utilized during the CT exam to meet ALARA standards for radiation dose reduction. INDICATION: Acute diplopia EXAMINATION: Multiple contiguous axial CT images of the head were obtained prior to and after intravenous administration of contrast. FINDINGS: Ventricles and sulci are within normal limits. There is no intracranial hemorrhage or abnormal mass effect. No abnormal focus of contrast enhancement is identified. IMPRESSION: Unremarkable CT of the head without and with intravenous contrast. CTA HEAD: Anterior, middle and posterior cerebral arteries are widely patent. There is no evidence of stenosis or occlusion. No aneurysm or vascular malformation is present. IMPRESSION: No CTA evidence of great vessel abnormality in the head. CTA NECK: Great vessels in the upper mediastinum are unremarkable. Carotid and vertebral arteries are patent without evidence of intimal abnormality. There is no evidence of stenosis or occlusion. IMPRESSION: No CTA evidence of great vessel abnormality in the neck. Dictated on workstation # [id number] Dict: 04/03/22 0740 Trans: 04/03/22 0750 [facility] [id number] Interpreted by: YOUSUF KHAN MD Electronically signed by: Comments NAME: JESUS ROSS [facility] REC#: [id number] PT STATUS: REG ER : 1985 PHYSICIAN: SONIA CRUZ MD ADMIT DATE: 04/03/22/ER Draft Date of Exam:04/03/22 MRI BRAIN W/WO CONTRAST PROCEDURE: MR imaging of the brain with and without contrast. TECHNIQUE: Multiplanar, multisequence MR imaging of the brain was performed with and without contrast. INDICATION: Headache. Extraocular muscular palsy. Numbness. COMPARISON: CTA head and neck 04/03/2022. FINDINGS: No abnormal intracranial signal or enhancement. No restricted water diffusion. No hemosiderin deposition or evidence of intracranial hemorrhage. Normal morphology including the major midline structures, sella, posterior fossa and cerebellar pontine angle. Normal intracranial flow voids. No hydrocephalus or extra-axial fluid collections. The orbits are unremarkable. Paranasal sinuses and mastoids are clear. Normal bone marrow signal. IMPRESSION: Normal MRI of the brain without and with IV contrast. No acute findings. No evidence of acute infarction or hemorrhage. Dictated on workstation # [id number] Dict: 04/03/2246 Trans: 04/03/22 0953 [facility] [id number] Interpreted by: MANAV FRYE MD Electronically signed by: Departure Impression Primary Impression: Lateral rectus palsy Qualified Codes: H49.21 - Sixth [abducent] nerve palsy, right eye Disposition: 01 HOME, SELF-CARE Condition: Stable Departure-Patient Inst. Decision time for Depature: 09:59 Referrals: [facility] [place]YSIC[place] (PCP) Primary Care Physician Patient Instructions: Double Vision (DC) Add. Discharge Instructions: Take over the counter Tylenol or Ibuprofen every 6 hours as needed for headache. If you have a sudden onset of double vision again, ESPECIALLY with weakness or numbness in your face or arms and legs, please come back to the Emergency De partment for re-evaluation. Please follow up with the [facility] for further health maintenance and monitoring of these symptoms. You should REALLY try and quit smoking. Work/School Note: Work Release Form Date Seen in the Emergency Department: Apr 03, 2022 Return to Work: Apr 04, 2022 SONIA CRUZ MD Apr 03, 2022 06:31
[2022-04-03 06:41] LABS: ALBUMIN 4.1 GM/DL (3.2-4.5)
[2022-04-03 06:42] LABS: POTASSIUM 3.8 MMOL/L (3.6-5.0)
[2022-04-03 06:43] LABS: CALCIUM 8.7 MG/DL (8.5-10.1)
[2022-04-03 06:44] LABS: TOTAL PROTEIN 6.7 GM/DL (6.4-8.2)
[2022-04-03 06:46] LABS: BILIRUBIN,TOTAL 0.2 MG/DL (0.1-1.0)
[2022-04-03 06:48] LABS: CREATININE SERUM 0.77 MG/DL (0.60-1.30)
[2022-04-03] MEDS ORDERED: NS 100 ML (IVPB) BAG IV ONE (07:45)
[2022-04-03] MEDS ORDERED: HOLD METFORMIN - RECEIVED CONTRAST 20 ML VIAL IV SCH (07:45)
[2022-04-03] MEDS ORDERED: IOHEXOL 350 MG/ML 100 ML (OMNIPAQUE 350) VIAL IV ONE (07:45)
--- NOTE | 2022-04-03 07:51 | Diagnostic Imaging Report ---
PROCEDURE: CT angiography of the head and CT angiography of the neck with and without contrast. TECHNIQUE: Contiguous noncontrast images were obtained from the skull base through the vertex. After intravenous contrast administration, helical CT angiography of the neck was performed. Source data was reformatted into 3D MIP projections. Delayed post contrast acquisition was also obtained. Auto Exposure Controls were utilized during the CT exam to meet ALARA standards for radiation dose reduction. INDICATION: Acute diplopia EXAMINATION: Multiple contiguous axial CT images of the head were obtained prior to and after intravenous administration of contrast. FINDINGS: Ventricles and sulci are within normal limits. There is no intracranial hemorrhage or abnormal mass effect. No abnormal focus of contrast enhancement is identified. IMPRESSION: Unremarkable CT of the head without and with intravenous contrast. CTA HEAD: Anterior, middle and posterior cerebral arteries are widely patent. There is no evidence of stenosis or occlusion. No aneurysm or vascular malformation is present. IMPRESSION: No CTA evidence of great vessel abnormality in the head. CTA NECK: Great vessels in the upper mediastinum are unremarkable. Carotid and vertebral arteries are patent without evidence of intimal abnormality. There is no evidence of stenosis or occlusion. IMPRESSION: No CTA evidence of great vessel abnormality in the neck. Dictated by: Dictated on workstation # [id number]
--- NOTE | 2022-04-03 07:54 | Diagnostic Imaging Report ---
INDICATION: Focal neurological deficit COMPARISON: 04/18/2016 FINDINGS: Lungs clear. No failure, effusion or pneumothorax. IMPRESSION: No acute appearing abnormality. Dictated by: Dictated on workstation # [id number]
[2022-04-03] MEDS ORDERED: KETOROLAC 30 MG/ML VIAL IVP ONE (08:00)
[2022-04-03] MEDS ORDERED: NS IV 1000 ML 1,000 ML IV SCH (08:00)
[2022-04-03] MEDS ORDERED: ONDANSETRON 4 MG/2 ML (SDV) Z0FRAN IVP ONE (08:00)
[2022-04-03 08:04] LABS: INR 0.9 (0.8-1.4); PROTHROMBIN TIME PATIENT 12.9 SEC (12.2-14.7)
[2022-04-03 08:28] LABS: AMPHETAMINE SCREEN, URINE NEGATIVE (NEGATIVE); BARBITURATE SCREEN URINE NEGATIVE (NEGATIVE); BENZODIAZEPINES SCREEN URINE NEGATIVE (NEGATIVE); CANNABINOID SCREEN, URINE POSITIVE (NEGATIVE); COCAINE SCREEN URINE NEGATIVE (NEGATIVE); METHADONE STAT NEGATIVE (NEGATIVE); OPIATE SCREEN URINE NEGATIVE (NEGATIVE); OXYCODONE STAT NEGATIVE (NEGATIVE); PROPOXYPHENE STAT NEGATIVE (NEGATIVE); TRICYCLIC ANTIDEPRESSANTS SCRE NEGATIVE (NEGATIVE)
[2022-04-03] MEDS ORDERED: GADOTERATE 0.5 MMOL/ML (CLARISCAN) 15 ML VIAL IV ONE (09:30)
--- NOTE | 2022-04-03 09:53 | Diagnostic Imaging Report ---
PROCEDURE: MR imaging of the brain with and without contrast. TECHNIQUE: Multiplanar, multisequence MR imaging of the brain was performed with and without contrast. INDICATION: Headache. Extraocular muscular palsy. Numbness. COMPARISON: CTA head and neck 04/03/2022. FINDINGS: No abnormal intracranial signal or enhancement. No restricted water diffusion. No hemosiderin deposition or evidence of intracranial hemorrhage. Normal morphology including the major midline structures, sella, posterior fossa and cerebellar pontine angle. Normal intracranial flow voids. No hydrocephalus or extra-axial fluid collections. The orbits are unremarkable. Paranasal sinuses and mastoids are clear. Normal bone marrow signal. IMPRESSION: Normal MRI of the brain without and with IV contrast. No acute findings. No evidence of acute infarction or hemorrhage. Dictated by: Dictated on workstation # [id number]
[2022-04-03 10:18] VITALS: BP 129/75
== END 2022-04-03 10:18 | disposition home or self-care (01) ==
LOC: EDUNIT# 06:02 → ER 06:05
DX: H49.9 Unspecified paralytic strabismus (principal); Z28.310 Unvaccinated for COVID-19
CPT/HCPCS: 36415; 70496; 70498; 70553; 71045; 80053; 80306; 82947; 84703; 85025; 85610; 85652; 85730; 86141; 93005

== ENCOUNTER 2022-07-20 18:25 | Emergency (ER) | payer SELFPAY ==
[~2022-07-20] VITALS: Ht 162.5 cm; Wt 58.9 kg
[2022-07-20 18:44] VITALS: BP 125/87
[2022-07-20] MEDS ORDERED: RX-CEPHALEXIN (KEFLEX) 250 MG CAP PPK#4 PO STA (19:15)
[2022-07-20] MEDS ORDERED: CEPH500T PO (19:18)
--- NOTE | 2022-07-20 19:18 | ED EENT ---
History of Present Illness General Chief Complaint: Dental Problems/Pain Stated Complaint: DENTAL PAIN,LT EAR PAIN,COUGH,PAINFUL TO SPEAK Nursing Triage Note: PT AMB TO TRIAGE WITH COMPLAINT OF LEFT EAR PAIN. STATES SHE HAD A CAVITY FALL OUT OF TOOTH A WEEK AGO. STATES HAS TRIED TYLENOL AND IBUPROFEN WITH NO RELIEF OF PAIN. STATES PAIN STARTED TODAY. History of Present Illness Date Seen by Provider: Jul 20, 2022 Time Seen by Provider: 18:50 Initial Comments 36-year-old female presents for extreme left ear pain and left upper molar dental pain. She took ibuprofen and Tylenol approximately 2 hours ago with no relief. She has been applying Ambesol to the dental area with no improvement. She has not been seen by primary care or dental. She has not seen a dentist for several years. Patient sobbing throughout visit. Timing/Duration: other (3 days) Severity: moderate Location: ear (L), dental Prearrival Treatment: over the counter meds Associated Symptoms: No ear drainage, No fever, No poor fluid intake, No poor solids intake; tooth pain Allergies and Home Medications Allergies Coded Allergies: Penicillins (Unverified Allergy, Unknown, 04/19/16) sulfamethoxazole (Unverified Allergy, Unknown, 04/19/16) trimethoprim (Unverified Allergy, Unknown, 04/19/16) tramadol (Unverified Adverse Reaction, Mild, rash, 04/19/16) Patient Home Medication List Home Medication List Reviewed: Yes Amoxicillin/Potassium Clav (Augmentin 875-125 Tablet) 1 Each Tablet, 1 EACH PO BID Prescribed by: COLEMAN HARDY on 05/09/21 0350 Cephalexin (Cephalexin) 500 Mg Tablet, 500 MG PO TID Prescribed by: HILARIA CLOUD on 07/20/22 191 Doxycycline Hyclate (Doxycycline Hyclate) 100 Mg Tablet, 100 MG PO BID Prescribed by: HILDA ROSADO on 01/26/20 1020 Methocarbamol (Methocarbamol) 750 Mg Tablet, 750 MG PO Q6-8HR Prescribed by: SONIA CRUZ on 02/22/22 1632 Metronidazole (Metronidazole) 500 Mg Tablet, 500 MG PO TID Prescribed by: HILDA ROSADO on 01/26/20 1020 Ondansetron (Ondansetron Odt) 4 Mg Tab.rapdis, 4-8 MG PO Q6H PRN for NAUSEA/VOMITING Prescribed by: COLEMAN HARDY on 05/09/21 0408 Review of Systems Review of Systems Constitutional: no symptoms reported, see HPI Ears: See HPI, Pain Mouth: see HPI, pain; denies swelling All Other Systems Reviewed Negative Unless Noted: Yes Past Acsusiu-Akvjec-Snnmge Hx Patient Social History Tobacco Use?: No Use of E-Cig and/or Vaping dev: No Substance use?: No Alcohol Use?: No Pt feels they are or have been: No Immunizations Up To Date Tetanus Booster (TDap): Unknown PED Vaccines UTD: No Seasonal Allergies Seasonal Allergies: Yes Past Medical History Surgery/Hospitalization HX: TUBAL LIGATION, LT KNEE Surgeries: Yes ([place] Teeth, Left Knee scope, Ovarian Cyst) Gallbladder, Orthopedic Respiratory: Yes Asthma, Chronic Bronchitis Currently Using CPAP: No Currently Using BIPAP: No Cardiac: No Neurological: No Reproductive Disorders: No Female Reproductive Disorders: Ovarian Cyst [employer] History: Tubal Ligation Sexually Transmitted Disease: No HIV/AIDS: No Genitourinary: No Gastrointestinal: Yes (Gallbladder ruptured) Musculoskeletal: Yes Arthritis, Fractures Endocrine: No HEENT: No Loss of Vision: Denies Hearing Impairment: Denies Cancer: No Psychosocial: Yes Anxiety, Bipolar, Depression Integumentary: No Blood Disorders: No Adverse Reaction/Blood Tranf: No Family Medical History Reviewed Nursing Family Hx Alcoholism 19 MOTHER G8 BROTHER G8 BROTHER G8 BROTHER Asthma 19 FATHER G8 BROTHER G8 BROTHER G8 BROTHER Diabetes mellitus Grandparents (Paternal Grandmother) Drug abuse 19 FATHER (Meth, Cocaine, Marijuana, Shrooms, Pills) Hypercholesterolemia 19 FATHER Grandparents (Maternal Grandmother) Hypertension 19 FATHER Grandparents (Paternal Grandmother) Psychosocial problem 19 FATHER (Bipolar, Anxiety) G8 BROTHER (Bipolar, Anxiety, Schizophrenia) G8 BROTHER (Bipolar, Anxiety) G8 BROTHER (Bipolar, Anxiety) Respiratory disorder G8 BROTHER (Asthma) No Pertinent Family Hx Physical Exam Vital Signs Vital Signs - First Documented 07/20/22 18:44 Pulse 88 Resp 16 B/P (MAP) 125/87 (100) Pulse Ox 98 O2 Delivery Room Air Height, Weight, BMI Height: 5'4.00" Weight: 131lbs. 0oz. [id number]; 22.00 BMI Method:Stated General Appearance: mild distress (secondary to pain) Eyes: bilateral eye normal inspection, bilateral eye PERRL, bilateral eye EOMI Ears: right ear canal normal; left ear swelling, left ear tenderness, left ear TM bulging; bilateral ear auricle normal, bilateral ear TM red Nose: normal inspection; No active bleeding, No discharge Mouth/Throat: normal mouth inspection, pharynx normal, dental tenderness Neck: non-tender, full range of motion, supple, normal inspection; No lymphadenopathy (R), No lymphadenopathy (L) Cardiovascular: normal peripheral pulses, regular rate, rhythm Respiratory: chest non-tender, lungs clear, normal breath sounds Neurologic/Psychiatric: no motor/sensory deficits, alert, normal mood/affect, oriented x 3 Skin: normal color, warm/dry; No rash Procedures/Interventions Suture Size: 4-0 Progress/Results/Core Measures Results/Orders My Orders Orders - HILARIA CLOUD Rx-Cephalexin Capsule (Rx-Keflex Capsule (07/20/22 19:15) Vital Signs/I&O 07/20/22 18:44 Pulse 88 Resp 16 B/P (MAP) 125/87 (100) Pulse Ox 98 O2 Delivery Room Air Blood Pressure Mean: 100 Departure Impression Primary Impression: Otitis media Qualified Codes: H66.002 - Acute suppurative otitis media without spontaneou s rupture of ear drum, left ear Additional Impression: Pain, dental Disposition: 01 HOME, SELF-CARE Condition: Stable Departure-Patient Inst. Decision time for Depature: 19:10 Referrals: NO,LOCAL PHYSICIAN (PCP/Family) Primary Care Physician Patient Instructions: Dental Pain (DC), Ear Infections (Otitis Media) in Adults (DC) Add. Discharge Instructions: Take antibiotics as prescribed. Alternate between Tylenol 1000 mg and ibuprofen 600 mg every 4 hours for pain or fever. Follow-up at [facility] with walk-in or your primary care provider if symptoms or not improving. Call [facility] dental to schedule an appointment for your tooth. Return to the emergency department for new, urgent healthcare needs All discharge instructions reviewed with patient and/or family. Voiced understanding. Scripts Cephalexin (Cephalexin) 500 Mg Tablet 500 MG PO TID, #21 TAB 0 Refills Prov: HILARIA CLOUD 07/20/22 HILARIA CLOUD Jul 20, 2022 19:18
== END 2022-07-20 19:25 | disposition home or self-care (01) ==
LOC: EDUNIT# 18:25 → ER 18:27
DX: H66.92 Otitis media, unspecified, left ear (principal); K08.89 Other specified disorders of teeth and supporting structures; Z88.0 Allergy status to penicillin
CPT/HCPCS: 99283